=== PATIENT | male | born 1955 | race Two or more races ===

== ENCOUNTER 2016-12-19 08:27 | Inpatient (IN) | payer OTHER ==
[2016-12-19 09:29] VITALS: BMI 23.5
--- NOTE | 2016-12-19 10:30 | HP ---
COWS - Scale Resting Pulse: 1= [place] 81-100 Sweatin= Chills/Flushing Restless Observation: 3= Extraneous Movement Pupil Size: 1= Pupils >than Normal Bone or Joint Aches: 2= Severe Diffuse Aches Runny Nose/ Eye Tearin= Runny Nose/Eyes GI Upset > 30mins: 3= Vomiting/Diarrhea Tremor Observation: 2= Slight Tremor Visible Yawning Observation: 2= >3x During Session Anxiety or Irritability: 2=Irritable/Anxious Goose Flesh Skin: 0=Smooth Skin COWS Score: 19 Admission ROS [facility] - HPI Chief Complaint: I NEED HELP TO STOP USING HEROIN AND COCAINE Allergies/Adverse Reactions: Allergies Allergy/AdvReac Type Severity Reaction Status Date / Time No Known Allergies Allergy Verified 12/19/16 10:22 - Ebola screening Have you traveled outside of the country in the last 21 days: No (N) Have you had contact with anyone from an Ebola affected area: No Have you been sick,other than usual withdrawal symptoms: No Do you have a fever: No Patient History - Smoking Cessation Smoking history: Unknown if ever smoked Admission Physical Exam [facility] - Vital Signs Vital Signs: Vital Signs - 24 hr 12/19/16 09:19 Temperature 97.5 F L Pulse Rate 90 Respiratory 18 Rate Blood Pressure 112/70 Screened but not Admitted - Documentation of Visit Screened but not Admitted: Yes Level of Care Recommended at this Time: ER Evaluation/Care Additional Information/Explanation: THIS 61 YEARS OLD MALE WITH HEROIN AND COCAINE DEPENDENCE,. SWELLING WITH ERYTEMA RIGHT ELBOW WITH TENDERNESS. TENDERNESS ON PALPATION,COPD,HIV SINCE 1989,. BIPOLAR DISORDER,. R/O ABSCESS OF RIGHT ELBOW. TO [facility] ER FOR EVALUATION AND TREATMENT,SPOKE WITH. DR Zoran PIERSON ,PATIENT TO BE TRANSPORTED BY AMBULANCE [facility] Breath Alcohol Content Breath Alcohol Content: 0 Urine Drug Screen - Results Drug Screen Negative: Yes Urine Drug Screen Results: THC-Marijuana, MARIFER-Cocaine, OPI-Opiates
--- NOTE | 2016-12-19 17:56 | HP ---
COWS - Scale Resting Pulse: 1= [place] 81-100 Sweatin= Chills/Flushing Restless Observation: 3= Extraneous Movement Pupil Size: 1= Pupils >than Normal Bone or Joint Aches: 2= Severe Diffuse Aches Runny Nose/ Eye Tearin= Runny Nose/Eyes GI Upset > 30mins: 3= Vomiting/Diarrhea Tremor Observation: 2= Slight Tremor Visible Yawning Observation: 2= >3x During Session Anxiety or Irritability: 2=Irritable/Anxious Goose Flesh Skin: 0=Smooth Skin COWS Score: 19 Admission ROS [facility] Chief Complaint: WITHDRAWAL SX FROM HEROIN Allergies/Adverse Reactions: Allergies Allergy/AdvReac Type Severity Reaction Status Date / Time No Known Allergies Allergy Verified 12/19/16 22:39 History of Present Illness: 61 Y/O H/M WITH A HX OF HEROIN, CRACK AND MARIJUANA DEPENDENCE SEEKING DETOX TX. PT WAS SENT TO [facility] ER THIS MORNING FOR SWOLLEN RIGHT ARM FOR EVALUATION AND TREATMENT. PT WAS EVALUATED AND DISCHARGED WITH A ANTIBIOTICS. DX: ELBOW BURSITIS DX:CELLULITIS MEDICATION:CLINDAMYCIN(CLEOCIN) 450 MG PO Q8H X 7 DAYS Exam Limitations: No Limitations - Ebola screening Have you traveled outside of the country in the last 21 days: No (N) Have you had contact with anyone from an Ebola affected area: No Have you been sick,other than usual withdrawal symptoms: No Do you have a fever: No - Review of Systems Constitutional: Chills, Night Sweats, Changes in sleep EENT: reports: Nose Congestion, Dental Problems (MISSING TEETH) Respiratory: reports: Shortness of Breath (HX ASTHMA), Wheezing Cardiac: reports: No Symptoms Reported GI: reports: Constipated, Diarrhea, Nausea, Vomiting, Abdominal cramping : reports: No Symptoms Reported Musculoskeletal: reports: Back Pain, Joint Pain, Muscle Pain Integumentary: reports: Bruising (BOTH ARMS. RIGHT ARM REDNESS AND SWELLING.), Dryness Neuro: reports: Headache, Tremors, Unsteady Gait Endocrine: reports: No Symptoms Reported Hematology: reports: No Symptoms Reported Psychiatric: reports: Orientated x3, Anxious Other Systems: Reviewed and Negative Patient History - Patient Medical History Hx Anemia: No Hx Asthma: No Hx Chronic Obstructive Pulmonary Disease (COPD): Yes (Pt is on MDI) Hx Cardiac Disorders: No Hx Hypertension: Yes (HCTZ 25 MG PO DAILY) Hx Hypercholesterolemia: No HX Cerebrovascular Accident: No Hx Seizures: No Hx Diabetes: No Hx Gastrointestinal Disorders: No Hx Genitourinary Disorders: No Hx Sexually Transmitted Disorders: No Hx Renal Disease (ESRD): No Hx Thyroid Disease: No Hx Human Immunodeficiency Virus (HIV): Yes (SINCE 1989;ON TRUVADA,REYATAZ, NORVIR.) Hx Hepatitis C: Yes (TREATED) Hx Depression: Yes (AND ANXIETY) Hx Suicide Attempt: No (DENIES) Hx Bipolar Disorder: Yes (ON MED) Hx Schizophrenia: No - Patient Surgical History Past Surgical History: Yes Hx Orthopedic Surgery: Yes (sx to R wrist knee and ankle 01/21) - PPD History Previous Implant?: Yes Documented Results: Negative w/o proof Implanted On Prior [facility] Admission?: No PPD to be Administered?: Yes - Reproductive History Patient is a Female of Child Bearing Age (11 -55 yrs old): No (MALE) - Smoking Cessation Smoking history: Current every day smoker Have you smoked in the past 12 months: No Aproximately how many cigarettes per day: 5 Hx Chewing Tobacco Use: No Initiated information on smoking cessation: Yes 'Breaking Loose' booklet given: 12/12/16 - Substance & Tx. History Hx Alcohol Use: No (DENIES) Hx Substance Use: Yes (HEROIN/CRACK) Substance Use Type: Cocaine, Heroin Hx Substance Use Treatment: Yes (LAST TX AT [facility]) - Substances Abused Heroin Route: Injection Frequency: Daily Amount used: 8-9 BAGS Age of first use: 16 Date of Last Use: 12/19/16 Crack Route: Smoking Frequency: Daily Amount used: 5-6 BAGS Age of first use: 56 Date of Last Use: 12/19/16 Family Disease History - Family Disease History Family Disease History: Diabetes: Mother (HTN-), Other: Father ( ALCOHOLISM/CIRRHOSIS-), Mother Admission Physical Exam S - Vital Signs Vital Signs: Vital Signs - 24 hr 12/19/16 09:19 Temperature 97.5 F L Pulse Rate 90 Respiratory 18 Rate Blood Pressure 112/70 - Physical General Appearance: Yes: Moderate Distress, Irritable, Anxious HEENTM: Yes: EOMI, Normocephalic, RU, Pharynx Normal, Nasal Congestion, Rhinorrhea Respiratory: Yes: Chest Non-Tender, Lungs Clear, Normal Breath Sounds, No Respiratory Distress Neck: Yes: No masses,lesions,Nodules, Supple, Trachea in good position Breast: Yes: Breast Exam Deferred Cardiology: Yes: Regular Rhythm, Regular Rate, S1, S2 Abdominal: Yes: Normal Bowel Sounds, Non Tender, Flat Genitourinary: Yes: Other (N/C) Back: Yes: Within Normal Limits Musculoskeletal: Yes: full range of Motion, Gait Steady Extremities: Yes: Normal Range of Motion, Non-Tender, Swelling (RIGHT ELBOW REDNESS/WARMTH/SWELLING.) Neurological: Yes: sales contract administrator II-XII NML intact, Fully Oriented, Alert, Motor Strength 5/5 Integumentary: Yes: Dry, Warm, Track Cordero (LEFT ELBOW--NO REDNESS OR SWELLING) Lymphatic: Yes: Within Normal Limits - Diagnostic (1) Opioid dependence with withdrawal Current Visit: Yes Status: Acute (2) Cocaine dependence, uncomplicated Current Visit: Yes Status: Acute (3) Cannabis dependence, uncomplicated Current Visit: Yes Status: Acute (4) HIV (human immunodeficiency virus infection) Current Visit: Yes Status: Chronic (5) COPD (chronic obstructive pulmonary disease) Current Visit: Yes Status: Chronic Qualifiers: COPD type: unspecified COPD Qualified Code(s): J44.9 - Chronic obstructive pulmonary disease, unspecified (6) Hypertension Current Visit: Yes Status: Chronic Qualifiers: Hypertension type: essential hypertension Qualified Code(s): I10 - Essential (primary) hypertension (7) Cellulitis Current Visit: Yes Status: Acute Qualifiers: Site of cellulitis: extremity Site of cellulitis of extremity: upper extremity Laterality: right Qualified Code(s): L03.113 - Cellulitis of right upper limb Cleared for Admission [facility] - Detox or Rehab [facility] Level of Care: Medically Managed Detox Regimen/Protocol: Methadone [facility] Breath Alcohol Content Breath Alcohol Content: 0 Urine Drug Screen - Results Drug Screen Negative: Yes Urine Drug Screen Results: THC-Marijuana, MARIFER-Cocaine, OPI-Opiates
[2016-12-19] MEDS ORDERED: METHADONE HCL 10 MG TABLET (FOR DETOX USE ONLY) PO ONE ×2 (18:10→23:00)
[2016-12-19] MEDS ORDERED: IBUPROFEN 400 MG TABLET (FP) PO PRN (18:10)
[2016-12-19] MEDS ORDERED: LOPERAMIDE HCL 2 MG CAPSULE PO PRN (18:10)
[2016-12-19] MEDS ORDERED: guaiFENesin/D-METHORPHAN HB 10 ML UNIT-DOSE CUPS PO PRN (18:10)
[2016-12-19] MEDS ORDERED: MAGNESIUM HYDROX 2400MG/30ML ORAL SUSPENSION 30 ML CUP PO PRN (18:10)
[2016-12-19] MEDS ORDERED: NICOTINE POLACRILEX 2 MG GUM BC PRN (18:10)
[2016-12-19] MEDS ORDERED: MAGNESIUM CITRATE 300 ML BOTTLE PO PRN (18:10)
[2016-12-19] MEDS ORDERED: P-EPHED 60MG/TRIPROLIDI 2.5MG TABLET PO PRN (18:10)
[2016-12-19] MEDS ORDERED: MENTHOL/PHENOL 1 EACH UD MM PRN (18:10)
[2016-12-19] MEDS ORDERED: ACETAMINOPHEN 325 MG TABLET (FP) PO PRN (18:10)
[2016-12-19] MEDS: CLINDAMYCIN HCL 150 MG CAPSULE (FP) PO SCH ×2 (19:09→21:47)
[2016-12-19] MEDS: NICOTINE 14 MG/24 HOURS TOPICAL PATCH TD SCH (19:09)
[2016-12-19] MEDS: diazePAM 5 MG TABLET PO PRN (19:10)
[2016-12-19] MEDS: ALBUTEROL SO4 18 GM HFA INHALER IH PRN (19:19)
[2016-12-19] MEDS: MAG HYDROX/AL HYDROX/SIMETH 30 ML UNIT-DOSE CUP PO PRN (20:27)
[2016-12-19] MEDS: ALBUTEROL SO4 2.5/IPRATROPIUM 0.5 INH SOL 3 ML VIAL.NEB. NEB PRN (20:28)
[2016-12-19] MEDS: EMTRICITABINE 200MG/TENOFOVIR 300MG PO SCH (21:47)
[2016-12-19] MEDS: RITONAVIR 100 MG TABLET PO SCH (21:48)
[2016-12-19] MEDS: THIAMINE HCL 100 MG TABLET (FP) PO SCH (21:48)
[2016-12-19] MEDS: ATAZANAVIR SO4 300 MG CAPSULE PO SCH (21:48)
[2016-12-19] MEDS: BUDESONIDE/FORMETEROL FUMARATE 80/4.5 mcg INHALER IH SCH (21:48)
--- NOTE | 2016-12-19 22:07 | PN ---
[facility] Progress Note Note: Patient was seen and examined at bedside with complaint of abdominal pain. He reports his pain as intermittent unbearable, burning and aching. On examination , guarding behavior and bulge above the umbilicus noted. V/S B/P 140/76, HR 57, T 99.0F, R21. Patient states that he was at [facility] earlier today and they did not address his concerns about his abdominal pain and gave him antibiotics for his elbow infection. Patient transferred to [facility] ER for further evaluation. Endorsed to Dr. Craig.
[2016-12-19 23:37] LABS: URINE APPEARANCE CLEAR; URINE BILIRUBIN NEGATIVE (NEGATIVE); URINE BLOOD 2+ (NEGATIVE); URINE COLOR YELLOW; URINE GLUCOSE (UA) 2+ (NEGATIVE); URINE KETONE NEGATIVE (NEGATIVE); URINE NITRITE NEGATIVE (NEGATIVE); URINE UROBILINOGEN NEGATIVE mg/dL (0.2-1.0)
[2016-12-19 23:41] LABS: URINE PROTEIN 1+ (NEGATIVE)
[2016-12-19 23:43] LABS: URINE MUCUS RARE; URINE RBC 1; URINE WBC 1
[2016-12-20] MEDS: diazePAM 5 MG TABLET PO PRN (03:02)
[2016-12-20] MEDS: CLINDAMYCIN HCL 150 MG CAPSULE (FP) PO SCH ×3 (05:50→22:10)
[2016-12-20 09:54] LABS: MCH 26.2 pg (25.7-33.7); MCHC 32.8 g/dl (32.0-35.9); MEAN CELL VOLUME 79.7 fl (80-96); MEAN PLT VOLUME 8.7 fl (7.5-11.1); PLATELET COUNT 273 K/MM3 (134-434); RDW 16.5 % (11.9-15.9); WHITE BLOOD COUNT 6.9 K/mm3 (4.0-10.0)
[2016-12-20] MEDS: ALBUTEROL SO4 2.5/IPRATROPIUM 0.5 INH SOL 3 ML VIAL.NEB. NEB PRN (10:00)
[2016-12-20] MEDS ORDERED: METHADONE HCL 10 MG TABLET (FOR DETOX USE ONLY) PO ONE (10:00)
[2016-12-20] MEDS: PRENATAL VITAMINS W/ FOLIC ACID TABLET (FP) PO SCH (10:14)
[2016-12-20] MEDS: BUDESONIDE/FORMETEROL FUMARATE 80/4.5 mcg INHALER IH SCH ×2 (10:15→22:12)
[2016-12-20] MEDS: NAPROXEN 375 MG TABLET (FP) PO SCH ×2 (10:17→22:11)
[2016-12-20 10:39] LABS: ALBUMIN 2.7 g/dl (3.4-5.0); ALK PHOS 91 U/L (45-117); ANION GAP 10 (8-16); BILIRUBIN,TOTAL 0.9 mg/dL (0.2-1.0); CALCIUM 8.3 mg/dL (8.5-10.1); CO2 25 mmol/L (21-32); CREATININE 0.9 mg/dL (0.7-1.3); GLUCOSE,RANDOM 95 mg/dL (74-106); SGOT/AST 51 U/L (15-37); SGPT/ALT 61 U/L (12-78)
[2016-12-20] MEDS: NICOTINE 14 MG/24 HOURS TOPICAL PATCH TD SCH ×2 (11:01→13:27)
[2016-12-20 11:32] LABS: SICKLE CELL SCREEN NEGATIVE (NEGATIVE)
[2016-12-20 11:45] LABS: URINE LEUK ESTERASE Negative (NEGATIVE)
[2016-12-20] MEDS: ALBUTEROL SO4 18 GM HFA INHALER IH PRN (12:00)
--- NOTE | 2016-12-20 12:09 | PN ---
BHS COWS - Scale Resting Pulse: 1= [place] 81-100 Sweatin= Chills/Flushing Restless Observation: 1= Difficult to Sit Still Pupil Size: 0= Normal to Room Light Bone or Joint Aches: 2= Severe Diffuse Aches Runny Nose/ Eye Tearin= None GI Upset > 30mins: 1= Stomach Cramp Tremor Observation of Outstretched Hands: 2= Slight Tremor Visible Yawning Observation: 0= None Anxiety or Irritability: 2=Irritable/Anxious Goose Flesh Skin: 3=Piloerection COWS Score: 13 BHS Progress Note (SOAP) Subjective: Anxious, Stomach Cramping, Body Aches. Objective: PT. A & O X 3, OBSERVED AMBULATING ON UNIT. NO ACUTE DISTRESS. PT. RETURNED FROM [facility] ER LAST NIGHT FOR C/O ABDOMINAL PAIN (ER DX: VENTRAL HERNIA). SWELLING NOTED IN RIGHT ELBOW AND HAND. NO BLEEDING OR UNUSUAL DISCHARGE NOTED. PT. REPORTS THAT AREA IS PAINFUL. PT. CURRENTLY PRESCRIBED PO CLINDAMYCIN. 12/20/16 12:05 Vital Signs Temperature 98.1 F 12/20/16 09:19 Pulse Rate 94 H 12/20/16 09:19 Respiratory Rate 18 12/20/16 09:19 Blood Pressure 127/97 12/20/16 09:19 O2 Sat by Pulse Oximetry (%) Laboratory Tests 12/19/16 12/20/16 12/20/16 23:20 07:00 07:00 WBC 6.9 RBC 5.07 Hgb 13.3 Hct 40.4 MCV 79.7 L MCH 26.2 MCHC 32.8 RDW 16.5 H Plt Count 273 MPV 8.7 Sickle Cell Screen Negative Sodium 140 Potassium 3.9 Chloride 105 Carbon Dioxide 25 Anion Gap 10 BUN 22 H D Creatinine 0.9 Creat Clearance w eGFR > 60 Random Glucose 95 Calcium 8.3 L Total Bilirubin 0.9 D AST 51 H ALT 61 Alkaline Phosphatase 91 Total Protein 7.0 Albumin 2.7 L Urine Color Yellow Urine Appearance Clear Urine pH 6.0 Ur Specific [place] 1.027 Urine Protein 1+ H Urine Glucose (UA) 2+ H Urine Ketones Negative Urine Blood 2+ H Urine Nitrite Negative Urine Bilirubin Negative Urine Urobilinogen Negative Ur Leukocyte Esterase Negative Urine WBC (Auto) 1 Urine RBC (Auto) 1 Ur Epithelial Cells Rare Urine Mucus Rare RPR Titer 11/14/17 07:00 WBC RBC Hgb Hct MCV MCH MCHC RDW Plt Count MPV Sickle Cell Screen Sodium Potassium Chloride Carbon Dioxide Anion Gap BUN Creatinine Creat Clearance w eGFR Random Glucose Calcium Total Bilirubin AST ALT Alkaline Phosphatase Total Protein Albumin Urine Color Urine Appearance Urine pH Ur Specific [place] Urine Protein Urine Glucose (UA) Urine Ketones Urine Blood Urine Nitrite Urine Bilirubin Urine Urobilinogen Ur Leukocyte Esterase Urine WBC (Auto) Urine RBC (Auto) Ur Epithelial Cells Urine Mucus RPR Titer Nonreactive LABS NOTED. 12/20/16 12:09 Assessment: 12/20/16 12:07 WITHDRAWAL SYMPTOMS. Plan: CONTINUE DETOX. REPEAT UA FOR ADMISSION ABNORMALITIES. NAPROXEN, 375 MG PO BID FOR PAIN AND SWELLING OF RIGHT ELBOW AND HAND. INCREASE DAILY PO FLUID INTAKE.
--- NOTE | 2016-12-20 15:50 | CONSULT ---
[facility] Psychiatric Consult - Data Date of interview: 12/20/16 Admission source: [facility] Identifying data: First admission to [facility] for this 61 y/o male seeking detox treatment on for heroin,cocaine and marijuana dependence.Patient is single,a father of three,domiciled,unemployed and supported on [facility] benefits. Substance Abuse History: Active use of marihuana,heroin and crack as per self- report. Smoking history: Current every day smoker. Have you smoked in the past 12 months: No. Aproximately how many cigarettes per day: 5. Hx Chewing Tobacco Use: No. Initiated information on smoking cessation: Yes. 'Breaking Loose' booklet given: 12/12/16. - Substance & Tx. History. Hx Alcohol Use: No (DENIES). Hx Substance Use: Yes (HEROIN/CRACK). Substance Use Type: Cocaine, Heroin. Hx Substance Use Treatment: Yes (LAST TX AT [facility]). - Substances Abused. Heroin. Route: Injection. Frequency: Daily. Amount used: 8-9 BAGS. Age of first use: 16. Date of Last Use: 12/19/16. Crack. Route: Smoking. Frequency: Daily. Amount used: 5-6 BAGS. Age of first use: 56. Date of Last Use: 12/19/16 Medical History: Remarkable for HIV infection since 1989 (on ART medications), COPD,hypertension,hepatitis C and current treatment for cellulitis/elbow bursitis (on antibiotics).Noted remote history of orthosurgery for ijury to right wrist,ankle and right knee. Psychiatric History: Patient denies.Prescribed seroquel 50 mg/hs by his primary care doctor (insomnia).No history of suicide attempts. Physical/Sexual Abuse/Trauma History: Patient denies. Additional Comment: Urine Drug Screen Results: THC-Marijuana, MARIFER-Cocaine, OPI- Opiates.Noted. Mental Status Exam - Mental Status Exam Alert and Oriented to: Time, Place, Person Cognitive Function: Good Patient Appearance: Unkempt, Disheveled Mood: Withdrawn, Hopeful Affect: Mood Congruent Patient Behavior: Fatigued, Appropriate, Cooperative Speech Pattern: Clear Voice Loudness: Normal Thought Process: Intact, Goal Oriented Thought Disorder: Not Present Hallucinations: Denies Suicidal Ideation: Denies Homicidal Ideation: Denies Insight/Judgement: Poor Sleep: Poorly, Difficulty falling asleep Appetite: Good Muscle strength/Tone: Normal Gait/Station: Normal Psychiatric Findings - Problem List ([place] 1, 2,3) (1) Opioid dependence with withdrawal Current Visit: Yes Status: Acute (2) Cannabis dependence, uncomplicated Current Visit: Yes Status: Acute (3) Cocaine dependence, uncomplicated Current Visit: Yes Status: Acute (4) Nicotine dependence Current Visit: Yes Status: Acute (5) Insomnia Current Visit: Yes Status: Acute - Initial Treatment Plan Initial Treatment Plan: Psychoeducation.Detoxification.Sleep hygiene.Seroquel 50 mg po hs.Side effects/benefits are discussed with the patient.Agrees with careplan.Observation.
[2016-12-20] MEDS: ATAZANAVIR SO4 300 MG CAPSULE PO SCH (22:09)
[2016-12-20] MEDS: THIAMINE HCL 100 MG TABLET (FP) PO SCH (22:09)
[2016-12-20] MEDS: QUEtiapine FUMARATE 50 MG TABLET PO SCH (22:10)
[2016-12-20] MEDS: EMTRICITABINE 200MG/TENOFOVIR 300MG PO SCH (22:12)
[2016-12-20] MEDS: RITONAVIR 100 MG TABLET PO SCH (22:12)
[2016-12-21] MEDS: ALBUTEROL SO4 2.5/IPRATROPIUM 0.5 INH SOL 3 ML VIAL.NEB. NEB PRN ×2 (00:47→11:12)
[2016-12-21] MEDS: diazePAM 5 MG TABLET PO PRN ×3 (01:27→22:19)
[2016-12-21] MEDS: CLINDAMYCIN HCL 150 MG CAPSULE (FP) PO SCH ×3 (05:32→22:18)
[2016-12-21] MEDS: MAG HYDROX/AL HYDROX/SIMETH 30 ML UNIT-DOSE CUP PO PRN (05:44)
[2016-12-21] MEDS: ALBUTEROL SO4 18 GM HFA INHALER IH PRN (09:26)
[2016-12-21] MEDS ORDERED: METHADONE HCL 5 MG TABLET (FOR DETOX USE ONLY) PO ONE (10:00)
[2016-12-21] MEDS: BUDESONIDE/FORMETEROL FUMARATE 80/4.5 mcg INHALER IH SCH ×2 (10:29→23:02)
[2016-12-21] MEDS: PRENATAL VITAMINS W/ FOLIC ACID TABLET (FP) PO SCH (10:29)
[2016-12-21] MEDS: NICOTINE 14 MG/24 HOURS TOPICAL PATCH TD SCH (10:30)
[2016-12-21] MEDS: NAPROXEN 375 MG TABLET (FP) PO SCH ×2 (10:30→22:21)
--- NOTE | 2016-12-21 11:26 | PN ---
BHS COWS - Scale Resting Pulse: 1= [place] 81-100 Sweatin= Chills/Flushing Restless Observation: 1= Difficult to Sit Still Pupil Size: 0= Normal to Room Light Bone or Joint Aches: 0= None Runny Nose/ Eye Tearin= None GI Upset > 30mins: 0= None Tremor Observation of Outstretched Hands: 2= Slight Tremor Visible Yawning Observation: 1= 1-2x During Session Anxiety or Irritability: 2=Irritable/Anxious Goose Flesh Skin: 3=Piloerection COWS Score: 11 BHS Progress Note (SOAP) Subjective: Anxious, Sweating, Hot / Cold Sensations. Objective: PT. A & O X 3, OBSERVED AMBULATING ON UNIT. NO ACUTE DISTRESS. PT. HAS HISTORY OF COPD AND REPORTING SOB THAT HAS NOT RESPONDED WELL TO PRN DUONEB TREATMENTS AND VENTOLIN INHLAER. 12/21/16 11:32 Vital Signs Temperature 97.6 F 12/21/16 09:28 Pulse Rate 81 12/21/16 09:28 Respiratory Rate 18 12/21/16 09:28 Blood Pressure 137/76 12/21/16 09:28 O2 Sat by Pulse Oximetry (%) Laboratory Tests 12/19/16 12/20/16 12/20/16 23:20 07:00 07:00 WBC 6.9 RBC 5.07 Hgb 13.3 Hct 40.4 MCV 79.7 L MCH 26.2 MCHC 32.8 RDW 16.5 H Plt Count 273 MPV 8.7 Sickle Cell Screen Negative Sodium 140 Potassium 3.9 Chloride 105 Carbon Dioxide 25 Anion Gap 10 BUN 22 H D Creatinine 0.9 Creat Clearance w eGFR > 60 Random Glucose 95 Calcium 8.3 L Total Bilirubin 0.9 D AST 51 H ALT 61 Alkaline Phosphatase 91 Total Protein 7.0 Albumin 2.7 L Urine Color Yellow Urine Appearance Clear Urine pH 6.0 Ur Specific [place] 1.027 Urine Protein 1+ H Urine Glucose (UA) 2+ H Urine Ketones Negative Urine Blood 2+ H Urine Nitrite Negative Urine Bilirubin Negative Urine Urobilinogen Negative Ur Leukocyte Esterase Negative Urine WBC (Auto) 1 Urine RBC (Auto) 1 Ur Epithelial Cells Rare Urine Mucus Rare RPR Titer 12/20/16 07:00 WBC RBC Hgb Hct MCV MCH MCHC RDW Plt Count MPV Sickle Cell Screen Sodium Potassium Chloride Carbon Dioxide Anion Gap BUN Creatinine Creat Clearance w eGFR Random Glucose Calcium Total Bilirubin AST ALT Alkaline Phosphatase Total Protein Albumin Urine Color Urine Appearance Urine pH Ur Specific [place] Urine Protein Urine Glucose (UA) Urine Ketones Urine Blood Urine Nitrite Urine Bilirubin Urine Urobilinogen Ur Leukocyte Esterase Urine WBC (Auto) Urine RBC (Auto) Ur Epithelial Cells Urine Mucus RPR Titer Nonreactive LABS NOTED. REPEAT UA RESULTS PENDING. 12/21/16 11:38 Assessment: 12/21/16 11:32 WITHDRAWAL SYMPTOMS. COPD EXACERBATION. 12/21/16 11:42 Plan: CONTINUE DETOX. PREDNISONE, 20 MG PO DAILY FOR COPD EXACERBATION. ACCORDING TO PHARMACIST AT PT. 'S PHARMACY (OLGA TRUJILLO II, [facility] [place] PT. WAS PRESCRIBED PREDNISONE, 20 MG PO DAILY JUST PRIOR TO ADMISSION TO DETOX. INCREASE DAILY PO FLUID INTAKE.
[2016-12-21] MEDS: predniSONE 20 MG TABLET (UD) PO SCH (11:46)
--- NOTE | 2016-12-21 12:14 | EKG ---
Test Reason : Blood Pressure : / mmHG Vent. Rate : 086 BPM Atrial Rate : 086 BPM P-R Int : 142 ms QRS Dur : 082 ms QT Int : 348 ms P-R-T Axes : 074 013 071 degrees QTc Int : 416 ms NORMAL SINUS RHYTHM MINIMAL VOLTAGE CRITERIA FOR LVH, MAY BE NORMAL VARIANT BORDERLINE ECG NO PREVIOUS ECGS AVAILABLE Confirmed by ADRI SEGUNDO MD ([id number]) on 12/21/2016 12:14:23 PM Referred By: Confirmed By:ADRI SEGUNDO MD
[2016-12-21] MEDS: QUEtiapine FUMARATE 50 MG TABLET PO SCH (22:18)
[2016-12-21] MEDS: THIAMINE HCL 100 MG TABLET (FP) PO SCH (22:18)
[2016-12-21] MEDS: ATAZANAVIR SO4 300 MG CAPSULE PO SCH (22:19)
[2016-12-21] MEDS: RITONAVIR 100 MG TABLET PO SCH (22:20)
[2016-12-21] MEDS: EMTRICITABINE 200MG/TENOFOVIR 300MG PO SCH (22:21)
[2016-12-22] MEDS: ALBUTEROL SO4 2.5/IPRATROPIUM 0.5 INH SOL 3 ML VIAL.NEB. NEB PRN ×2 (00:51→11:25)
[2016-12-22] MEDS: MAG HYDROX/AL HYDROX/SIMETH 30 ML UNIT-DOSE CUP PO PRN ×2 (02:07→19:48)
[2016-12-22] MEDS: diazePAM 5 MG TABLET PO PRN (05:43)
[2016-12-22] MEDS: CLINDAMYCIN HCL 150 MG CAPSULE (FP) PO SCH ×3 (05:43→22:24)
[2016-12-22] MEDS: ALBUTEROL SO4 18 GM HFA INHALER IH PRN (05:44)
[2016-12-22] MEDS ORDERED: METHADONE HCL 5 MG TABLET (FOR DETOX USE ONLY) PO ONE (10:00)
[2016-12-22 10:21] LABS: URINE APPEARANCE SLCLOUDY; URINE BILIRUBIN NEGATIVE (NEGATIVE); URINE BLOOD NEGATIVE (NEGATIVE); URINE COLOR YELLOW; URINE GLUCOSE (UA) NEGATIVE (NEGATIVE); URINE KETONE NEGATIVE (NEGATIVE); URINE NITRITE NEGATIVE (NEGATIVE); URINE PROTEIN NEGATIVE (NEGATIVE); URINE UROBILINOGEN NEGATIVE mg/dL (0.2-1.0)
[2016-12-22] MEDS: BUDESONIDE/FORMETEROL FUMARATE 80/4.5 mcg INHALER IH SCH ×2 (10:29→22:25)
[2016-12-22] MEDS: NAPROXEN 375 MG TABLET (FP) PO SCH ×2 (10:30→22:24)
[2016-12-22] MEDS: PRENATAL VITAMINS W/ FOLIC ACID TABLET (FP) PO SCH (10:30)
[2016-12-22] MEDS: predniSONE 20 MG TABLET (UD) PO SCH (10:30)
[2016-12-22] MEDS: NICOTINE 14 MG/24 HOURS TOPICAL PATCH TD SCH (10:31)
[2016-12-22 16:52] LABS: URINE LEUK ESTERASE Negative (NEGATIVE)
--- NOTE | 2016-12-22 19:22 | PN ---
BHS Progress Note (SOAP) Subjective: Sweating, Stomach Cramping, Tremors, Anxious. Objective: PT. A & O X 3, OBSERVED AMBULATING ON UNIT. NO ACUTE DISTRESS. SWELLING ON RIGHT ELBOW AND HAND NOTED TO BE DIMINISHING. PATIENT REPORTS THAT DISCOMFORT IN THOSE AREAS IS IMPROVING. 12/22/16 19:19 Vital Signs Temperature 97.2 F L 12/22/16 17:13 Pulse Rate 91 H 12/22/16 17:13 Respiratory Rate 18 12/22/16 17:13 Blood Pressure 111/66 12/22/16 17:13 O2 Sat by Pulse Oximetry (%) Laboratory Tests 12/19/16 12/20/16 12/20/16 23:20 07:00 07:00 WBC 6.9 RBC 5.07 Hgb 13.3 Hct 40.4 MCV 79.7 L MCH 26.2 MCHC 32.8 RDW 16.5 H Plt Count 273 MPV 8.7 Sickle Cell Screen Negative Sodium 140 Potassium 3.9 Chloride 105 Carbon Dioxide 25 Anion Gap 10 BUN 22 H D Creatinine 0.9 Creat Clearance w eGFR > 60 Random Glucose 95 Calcium 8.3 L Total Bilirubin 0.9 D AST 51 H ALT 61 Alkaline Phosphatase 91 Total Protein 7.0 Albumin 2.7 L Urine Color Yellow Urine Appearance Clear Urine pH 6.0 Ur Specific [place] 1.027 Urine Protein 1+ H Urine Glucose (UA) 2+ H Urine Ketones Negative Urine Blood 2+ H Urine Nitrite Negative Urine Bilirubin Negative Urine Urobilinogen Negative Ur Leukocyte Esterase Negative Urine WBC (Auto) 1 Urine RBC (Auto) 1 Ur Epithelial Cells Rare Urine Mucus Rare RPR Titer 12/20/16 12/22/16 07:00 08:00 WBC RBC Hgb Hct MCV MCH MCHC RDW Plt Count MPV Sickle Cell Screen Sodium Potassium Chloride Carbon Dioxide Anion Gap BUN Creatinine Creat Clearance w eGFR Random Glucose Calcium Total Bilirubin AST ALT Alkaline Phosphatase Total Protein Albumin Urine Color Yellow Urine Appearance Slcloudy Urine pH 7.0 Ur Specific [place] 1.025 Urine Protein Negative Urine Glucose (UA) Negative Urine Ketones Negative Urine Blood Negative Urine Nitrite Negative Urine Bilirubin Negative Urine Urobilinogen Negative Ur Leukocyte Esterase Negative Urine WBC (Auto) Urine RBC (Auto) Ur Epithelial Cells Urine Mucus RPR Titer Nonreactive LABS NOTED. RESULTS OF REPEAT UA NOTED. 12/22/16 19:22 Assessment: 12/22/16 19:20 WITHDRAWAL SYMPTOMS. Plan: CONTINUED DETOX. INCREASE DAILY PO FLUID INTAKE. PATIENT ADVISED TO FOLLOW-UP AFTER DISCHARGE FROM DETOX WITH CLARIFIER OPERATOR HELPER DR. Tameka FELICIANO OF [facility] FOR MEDICAL ASSESSMENT AND FOR HISTORY OF COPD.
[2016-12-22] MEDS: QUEtiapine FUMARATE 50 MG TABLET PO SCH (22:24)
[2016-12-22] MEDS: RITONAVIR 100 MG TABLET PO SCH (22:24)
[2016-12-22] MEDS: ATAZANAVIR SO4 300 MG CAPSULE PO SCH (22:24)
[2016-12-22] MEDS: THIAMINE HCL 100 MG TABLET (FP) PO SCH (22:25)
[2016-12-22] MEDS: EMTRICITABINE 200MG/TENOFOVIR 300MG PO SCH (22:25)
[2016-12-23] MEDS: CLINDAMYCIN HCL 150 MG CAPSULE (FP) PO SCH ×3 (05:50→22:23)
[2016-12-23] MEDS: ALBUTEROL SO4 18 GM HFA INHALER IH PRN (08:18)
[2016-12-23] MEDS: ALBUTEROL SO4 2.5/IPRATROPIUM 0.5 INH SOL 3 ML VIAL.NEB. NEB PRN ×2 (09:29→19:46)
[2016-12-23] MEDS ORDERED: METHADONE HCL 10 MG TABLET (FOR DETOX USE ONLY) PO ONE (10:00)
[2016-12-23] MEDS: BUDESONIDE/FORMETEROL FUMARATE 80/4.5 mcg INHALER IH SCH ×2 (10:03→22:25)
[2016-12-23] MEDS: predniSONE 20 MG TABLET (UD) PO SCH (10:04)
[2016-12-23] MEDS: NAPROXEN 375 MG TABLET (FP) PO SCH ×2 (10:04→22:24)
[2016-12-23] MEDS: NICOTINE 14 MG/24 HOURS TOPICAL PATCH TD SCH (10:04)
[2016-12-23] MEDS: PRENATAL VITAMINS W/ FOLIC ACID TABLET (FP) PO SCH (10:04)
--- NOTE | 2016-12-23 16:08 | PN ---
BHS Progress Note (SOAP) Subjective: Anxious, Body Aches. Objective: PT. A & O X 3, OBSERVED AMBULATING ON UNIT. NO ACUTE DISTRESS. 12/23/16 16:07 Vital Signs Temperature 96.2 F L 12/23/16 13:49 Pulse Rate 69 12/23/16 13:49 Respiratory Rate 18 12/23/16 13:49 Blood Pressure 134/80 12/23/16 13:49 O2 Sat by Pulse Oximetry (%) Laboratory Tests 12/19/16 12/20/16 12/20/16 23:20 07:00 07:00 WBC 6.9 RBC 5.07 Hgb 13.3 Hct 40.4 MCV 79.7 L MCH 26.2 MCHC 32.8 RDW 16.5 H Plt Count 273 MPV 8.7 Sickle Cell Screen Negative Sodium 140 Potassium 3.9 Chloride 105 Carbon Dioxide 25 Anion Gap 10 BUN 22 H D Creatinine 0.9 Creat Clearance w eGFR > 60 Random Glucose 95 Calcium 8.3 L Total Bilirubin 0.9 D AST 51 H ALT 61 Alkaline Phosphatase 91 Total Protein 7.0 Albumin 2.7 L Urine Color Yellow Urine Appearance Clear Urine pH 6.0 Ur Specific [place] 1.027 Urine Protein 1+ H Urine Glucose (UA) 2+ H Urine Ketones Negative Urine Blood 2+ H Urine Nitrite Negative Urine Bilirubin Negative Urine Urobilinogen Negative Ur Leukocyte Esterase Negative Urine WBC (Auto) 1 Urine RBC (Auto) 1 Ur Epithelial Cells Rare Urine Mucus Rare RPR Titer 12/20/16 12/22/16 07:00 08:00 WBC RBC Hgb Hct MCV MCH MCHC RDW Plt Count MPV Sickle Cell Screen Sodium Potassium Chloride Carbon Dioxide Anion Gap BUN Creatinine Creat Clearance w eGFR Random Glucose Calcium Total Bilirubin AST ALT Alkaline Phosphatase Total Protein Albumin Urine Color Yellow Urine Appearance Slcloudy Urine pH 7.0 Ur Specific [place] 1.025 Urine Protein Negative Urine Glucose (UA) Negative Urine Ketones Negative Urine Blood Negative Urine Nitrite Negative Urine Bilirubin Negative Urine Urobilinogen Negative Ur Leukocyte Esterase Negative Urine WBC (Auto) Urine RBC (Auto) Ur Epithelial Cells Urine Mucus RPR Titer Nonreactive LABS NOTED. Assessment: 12/23/16 16:07 WITHDRAWAL SYMPTOMS. Plan: CONTINUE DETOX.
[2016-12-23] MEDS: MAG HYDROX/AL HYDROX/SIMETH 30 ML UNIT-DOSE CUP PO PRN (19:41)
[2016-12-23] MEDS: QUEtiapine FUMARATE 50 MG TABLET PO SCH (22:23)
[2016-12-23] MEDS: THIAMINE HCL 100 MG TABLET (FP) PO SCH (22:23)
[2016-12-23] MEDS: ATAZANAVIR SO4 300 MG CAPSULE PO SCH (22:23)
[2016-12-23] MEDS: RITONAVIR 100 MG TABLET PO SCH (22:24)
[2016-12-23] MEDS: EMTRICITABINE 200MG/TENOFOVIR 300MG PO SCH (22:26)
[2016-12-24] MEDS: CLINDAMYCIN HCL 150 MG CAPSULE (FP) PO SCH (05:39)
[2016-12-24] MEDS ORDERED: METHADONE HCL 5 MG TABLET (FOR DETOX USE ONLY) PO ONE (06:00)
[2016-12-24 09:06] VITALS: BP 132/84; PULSE 97; TEMP 96.4
[2016-12-24] MEDS: PRENATAL VITAMINS W/ FOLIC ACID TABLET (FP) PO SCH (10:25)
[2016-12-24] MEDS: predniSONE 20 MG TABLET (UD) PO SCH (10:25)
[2016-12-24] MEDS: NAPROXEN 375 MG TABLET (FP) PO SCH (10:26)
[2016-12-24] MEDS: NICOTINE 14 MG/24 HOURS TOPICAL PATCH TD SCH (10:27)
[2016-12-24] MEDS: BUDESONIDE/FORMETEROL FUMARATE 80/4.5 mcg INHALER IH SCH (10:28)
--- NOTE | 2016-12-24 16:30 | DS ---
[facility] Detox Discharge Summary Admission Date: 12/19/16 Discharge Date: 12/24/16 - History Present History: Cannabis Dependence, Cocaine Dependence, Opioid Dependence Additional Comments: PATIENT WILL CONTACT [facility] ON 12/26/2016 FOR POSSIBLE ADMISSION AT THAT TIME. PATIENT DECLINED PRESCRIPTION FOR DISCHARGE MEDICATIONS , STATING THAT HE CURRENTLY HAS ADEQUATE SUPPLIES OF HIS MEDICATIONS AT HOME. PATIENT ADVISED TO COMPLETE REMAINDER OF FULL COURSE OF CLINDAMYCIN THAT HE STARTED TAKING FOR CELLULITIS OF RIGHT ARM PRIOR TO ADMISSION TO DETOX (AND CONTINUED WHILE ADMITTED FOR DETOX). PATIENT ALSO ADVISED TO FOLLOW-UP WITH STRATEGIC PARTNERSHIP SPECIALIST DR. FELICIANO OF [facility]) AFTER DISCHARGE FROM DETOX FOR FOLLOW-UP MEDICAL ASSESSMENT FOR CELULITIS, COPD, AND ABDOMINAL HERNIA. PATIENT WAS DISCHARGED FROM DETOX UNIT IN STABLE MEDICAL CONDITION. Pertinent Past History: Hep C, HIV, COPD, HTN, Bipolar Disorder, Cellulitis of Upper Extremity, Abdominal Hernia, Depression, Anxiety, Insomnia. - Physical Exam Results Vital Signs: Vital Signs Temperature 96.4 F L 12/24/16 09:06 Pulse Rate 97 H 12/24/16 09:06 Respiratory Rate 18 12/24/16 09:06 Blood Pressure 132/84 12/24/16 09:06 O2 Sat by Pulse Oximetry (%) Pertinent Admission Physical Exam Findings: WITHDRAWAL SYMPTOMS. Laboratory Tests 12/19/16 12/20/16 12/20/16 23:20 07:00 07:00 WBC 6.9 RBC 5.07 Hgb 13.3 Hct 40.4 MCV 79.7 L MCH 26.2 MCHC 32.8 RDW 16.5 H Plt Count 273 MPV 8.7 Sickle Cell Screen Negative Sodium 140 Potassium 3.9 Chloride 105 Carbon Dioxide 25 Anion Gap 10 BUN 22 H D Creatinine 0.9 Creat Clearance w eGFR > 60 Random Glucose 95 Calcium 8.3 L Total Bilirubin 0.9 D AST 51 H ALT 61 Alkaline Phosphatase 91 Total Protein 7.0 Albumin 2.7 L Urine Color Yellow Urine Appearance Clear Urine pH 6.0 Ur Specific [place] 1.027 Urine Protein 1+ H Urine Glucose (UA) 2+ H Urine Ketones Negative Urine Blood 2+ H Urine Nitrite Negative Urine Bilirubin Negative Urine Urobilinogen Negative Ur Leukocyte Esterase Negative Urine WBC (Auto) 1 Urine RBC (Auto) 1 Ur Epithelial Cells Rare Urine Mucus Rare RPR Titer 12/20/16 12/22/16 07:00 08:00 WBC RBC Hgb Hct MCV MCH MCHC RDW Plt Count MPV Sickle Cell Screen Sodium Potassium Chloride Carbon Dioxide Anion Gap BUN Creatinine Creat Clearance w eGFR Random Glucose Calcium Total Bilirubin AST ALT Alkaline Phosphatase Total Protein Albumin Urine Color Yellow Urine Appearance Slcloudy Urine pH 7.0 Ur Specific [place] 1.025 Urine Protein Negative Urine Glucose (UA) Negative Urine Ketones Negative Urine Blood Negative Urine Nitrite Negative Urine Bilirubin Negative Urine Urobilinogen Negative Ur Leukocyte Esterase Negative Urine WBC (Auto) Urine RBC (Auto) Ur Epithelial Cells Urine Mucus RPR Titer Nonreactive LABS NOTED. - Treatment Hospital Course: Detox Protocol Followed, Detoxed Safely, Responded well, Discharged Condition Good, Rehab Referral Accepted Patient has Accepted a Rehab Referral to: [facility]. - Medication Discharge Medications: Ambulatory Orders Albuterol Sulfate Inhaler - [Ventolin Hfa Inhaler -] 2 inh PO Q4H PRN 12/19/16 Atazanavir [Reyataz -] 300 mg PO HS 12/19/16 Budesonide/Formeterol Fumarate [SYMBICORT 80/4.5mcg -] 1 inh PO BID 12/19/16 Clindamycin [Cleocin -] 450 mg PO Q8H #63 capsule 12/19/16 Emtricitabine/Tenofovir [Truvada] 1 tab PO HS 12/19/16 Ritonavir [Norvir -] 100 mg PO HS 12/19/16 Quetiapine Fumarate [Seroquel -] 50 mg PO HS #30 tablet 12/20/16 - Diagnosis (1) Cannabis dependence, uncomplicated Status: Acute (2) Cellulitis Status: Acute Qualifiers: Site of cellulitis: extremity Site of cellulitis of extremity: upper extremity Laterality: right Qualified Code(s): L03.113 - Cellulitis of right upper limb (3) Cocaine dependence, uncomplicated Status: Acute (4) Opioid dependence with withdrawal Status: Acute (5) COPD (chronic obstructive pulmonary disease) Status: Chronic Qualifiers: COPD type: unspecified COPD Qualified Code(s): J44.9 - Chronic obstructive pulmonary disease, unspecified (6) Nicotine dependence Status: Acute Qualifiers: Nicotine product type: cigarettes Substance use status: uncomplicated Qualified Code(s): F17.210 - Nicotine dependence, cigarettes, uncomplicated (7) HIV (human immunodeficiency virus infection) Status: Chronic (8) Hypertension Status: Chronic Qualifiers: Hypertension type: essential hypertension Qualified Code(s): I10 - Essential (primary) hypertension (9) Insomnia Status: Acute Qualifiers: Insomnia type: unspecified Qualified Code(s): G47.00 - Insomnia, unspecified - AMA Did Patient Leave Against Medical Advice: No
== END 2016-12-24 10:50 | disposition home or self-care (01) | DRG 199 ==
LOC: YASAS 08:27 → Y3N 17:28
PROVIDERS: ADMIT Internal Medicine; ATTEND Internal Medicine
PROC: HZ2ZZZZ Detoxification Services for Substance Abuse Treatment (ICD-10-PCS; principal; 2016-12-19)
DX: I10 Essential (primary) hypertension (principal); F11.23 Opioid dependence with withdrawal; F14.20 Cocaine dependence, uncomplicated; F12.20 Cannabis dependence, uncomplicated; F17.210 Nicotine dependence, cigarettes, uncomplicated; F31.9 Bipolar disorder, unspecified; F41.8 Other specified anxiety disorders; L03.113 Cellulitis of right upper limb; J44.9 Chronic obstructive pulmonary disease, unspecified; G47.00 Insomnia, unspecified; Z21 Asymptomatic human immunodeficiency virus [HIV] infection status
CPT/HCPCS: 36415; 80053; 81003; 81015; 85027; 85660; 86593; 93005; 93010; 94640

== ENCOUNTER 2016-12-19 11:12 | Emergency (ER) | payer OTHER ==
[2016-12-19 11:34] VITALS: TEMP 97.4; BMI 23.1
--- NOTE | 2016-12-19 13:23 | PDOC ---
History of Present Illness - History of Present Illness Initial Comments: 12/19/16 13:36 The patient is a 61 year old male, with a significant past medical history of heroin and cocaine abuse, copd, hiv+ (since 1989), and bipolar disorder, who was BIBA from [facility] c/o right elbow erythema and edema. Patient has had this elbow pain for 3-4 weeks. He is unable to flex or extend his without experiencing pain. He describes his pain as sharp, constant, and rates it 7/8- 10. He also has a hernia that is painful upon palpation that developed 3-4 weeks ago. He is an avid IV heroin and crack cocaine user and he last used this morning around 5 am. He states he is currently going through withdrawals. He also states he has been coughing up green phlegm recently. He states he has been short of breath recently whenever he goes outside in the cold. He complains of associated chills. He denies any recent fevers, headache or dizziness. He denies any recent nausea , vomit, diarrhea or constipation. He denies any recent chest pain. He denies any recent dysuria, frequency, urgency or hematuria. Allergies: NKA Social History: History of drug abuse ( IV heroin & crack-cocaine). Occasional cigarette use (4-5 cigarettes a day). Denies alcohol use. Primary Care Physician: Williams Berg <Antoinette Pop - Last Filed: 12/19/16 13:36> <Carisa Huynh - Last Filed: 12/19/16 15:13> - General Chief Complaint: Edema Stated Complaint: PAIN Time Seen by Provider: 12/19/16 12:01 Past History <Antoinette Pop - Last Filed: 12/19/16 13:36> - Past Medical History Asthma: No Cardiac Disorders: No COPD: Yes (Pt is on MDI) Diabetes: No GI Disorders: No Disorders: No HTN: Yes Kidney Stones: No Seizures: No - Surgical History Orthopedic Surgery: Yes (sx to R wrist knee and ankle 01/21) - Reproductive History Testicular Surgery: No - Immunization History Immunization Up to Date: Yes - Suicide/Smoking/Psychosocial Hx Smoking History: Current every day smoker Have you smoked in the past 12 months: No Number of Cigarettes Smoked Daily: 4 Information on smoking cessation initiated: No Hx Alcohol Use: No Drug/Substance Use Hx: Yes (Heroin) Substance Use Type: Cocaine, Heroin, Marijuana Hx Substance Use Treatment: Yes <Carisa Huynh - Last Filed: 12/19/16 15:13> - Past Medical History Allergies/Adverse Reactions: Allergies Allergy/AdvReac Type Severity Reaction Status Date / Time No Known Allergies Allergy Verified 12/19/16 11:26 Home Medications: Ambulatory Orders Albuterol Sulfate Inhaler - [Ventolin Hfa Inhaler -] 2 inh PO Q4H PRN 12/19/16 Atazanavir [Reyataz -] 300 mg PO HS 12/19/16 Budesonide/Formeterol Fumarate [SYMBICORT 80/4.5mcg -] 1 inh PO BID 12/19/16 Clindamycin [Cleocin -] 450 mg PO Q8H #63 capsule 12/19/16 Emtricitabine/Tenofovir [Truvada] 1 tab PO HS 12/19/16 Ritonavir [Norvir -] 100 mg PO HS 12/19/16 Review of Systems - Review of Systems Comments:: 12/19/16 13:37 GENERAL/CONSTITUTIONAL: +chills. No fever. No weakness. HEAD, EYES, EARS, NOSE AND THROAT: No change in vision. No ear pain or discharge. No sore throat. GASTROINTESTINAL: No nausea, vomiting, diarrhea or constipation. GENITOURINARY: No dysuria, frequency, or change in urination. CARDIOVASCULAR: +Shortness of breath. No chest pain. RESPIRATORY: + productive cough (green phlegm), no wheezing, or hemoptysis. MUSCULOSKELETAL: +right elbow swelling and pain. No neck or back pain. SKIN: +right elbow errythema/edema. No rash NEUROLOGIC: No headache, vertigo, loss of consciousness, or change in strength. ENDOCRINE: No increased thirst. No abnormal weight change. HEMATOLOGIC/LYMPHATIC: No anemia, easy bleeding, or history of blood clots. ALLERGIC/IMMUNOLOGIC: No hives or skin allergy. <Antoinette Pop - Last Filed: 12/19/16 13:36> *Physical Exam - Vital Signs Last Vital Signs Temp Pulse Resp BP Pulse Ox 97.4 F L 91 H 16 134/87 97 12/19/16 11:27 12/19/16 11:54 12/19/16 11:27 12/19/16 11:27 12/19/16 11:54 <Antoinette Pop - Last Filed: 12/19/16 13:36> - Vital Signs Last Vital Signs Temp Pulse Resp BP Pulse Ox 97.4 F L 91 H 16 134/87 97 12/19/16 11:27 12/19/16 11:54 12/19/16 11:27 12/19/16 11:27 12/19/16 11:54 - Physical Exam Comments: GENERAL: Awake, alert, and fully oriented, in no acute distress HEAD: No signs of trauma EYES: PERRLA, EOMI, sclera anicteric, conjunctiva clear ENT: Auricles normal inspection, hearing grossly normal, nares patent, oropharynx clear without exudates. Moist mucosa NECK: Normal ROM, supple, no lymphadenopathy, JVD, or masses LUNGS: Breath sounds equal, clear to auscultation bilaterally. No wheezes, and no crackles HEART: Regular rate and rhythm, normal S1 and S2, no murmurs, rubs or gallops ABDOMEN: Soft, nontender, normoactive bowel sounds. No guarding, no rebound. No masses EXTREMITIES: R elbow with posterior edema, erythema, warmth. No induration or fluctuance. Limited ROM due to pain. Remainder of extremities with normal range of motion, no edema. No clubbing or cyanosis. No cords, erythema, or tenderness NEUROLOGICAL: Cranial nerves II through XII grossly intact. Normal speech, normal gait SKIN: Warm, Dry, normal turgor, no rashes or lesions noted. <Carisa Huynh - Last Filed: 12/19/16 15:13> ED Treatment Course - Medications Given in the ED: ED Medications Discontinued Medications Generic Name Dose Route Start Last Admin Trade Name Freq PRN Reason Stop Dose Admin Oxycodone/Acetaminophen 1 combo 12/19/16 13:24 12/19/16 13:27 Percocet 5/325 - PO 12/19/16 13:25 Not Given ONCE ONE <Antoinette Pop - Last Filed: 12/19/16 13:36> - LABORATORY CBC & Chemistry Diagram: 12/19/16 13:27 12/19/16 13:27 <Carisa Huynh - Last Filed: 12/19/16 15:13> Medical Decision Making - Medical Decision Making 12/19/16 14:01 Pt with cellulitis to the R elbow. Will obtain XR to r/o gas forming organisms. Sono to r/o abscess. IV abx. <Carisa Huynh - Last Filed: 12/19/16 15:13> *DC/Admit/Observation/Transfer - Attestations Scribe Attestion: 12/19/16 13:41 Documentation prepared by Antoinette Pop, acting as medical sales specialist for Carisa Huynh MD. <Antoinette Pop - Last Filed: 12/19/16 13:36> - Discharge Dispostion Admit: No <Carisa Huynh - Last Filed: 12/19/16 15:13> Diagnosis at time of Disposition: Cellulitis Qualifiers: Site of cellulitis: extremity Site of cellulitis of extremity: upper extremity Laterality: right Qualified Code(s): L03.113 - Cellulitis of right upper limb - Discharge Dispostion Disposition: HOME Condition at time of disposition: Stable - Prescriptions Prescriptions: Clindamycin [Cleocin -] 450 mg PO Q8H #63 capsule
[2016-12-19] MEDS ORDERED: CLINDAMYCIN 600MG PREMIX IVPB 600 MG/50 ML BAG IVPB ONE ×2 (13:24→13:30)
[2016-12-19] MEDS ORDERED: SODIUM CHLORIDE 1,000 ML IV STA (13:24)
[2016-12-19 14:06] LABS: BASOPHIL 0.2 % (0-2.0); EOSINOPHIL 0.1 % (0-4.5); MCHC 32.2 g/dl (32.0-35.9); MEAN CELL VOLUME 80.6 fl (80-96); MEAN PLT VOLUME 8.3 fl (7.5-11.1); NEUTROPHILS 82.3 % (42.8-82.8); PLATELET COUNT 290 K/MM3 (134-434); RDW 16.6 % (11.9-15.9); WHITE BLOOD COUNT 9.5 K/mm3 (4.0-10.0)
[2016-12-19 14:31] LABS: ALBUMIN 3.2 g/dl (3.4-5.0); ANION GAP 7 (8-16); BILIRUBIN,TOTAL 0.6 mg/dL (0.2-1.0); CALCIUM 8.8 mg/dL (8.5-10.1); CO2 27 mmol/L (21-32); CREATININE 0.8 mg/dL (0.7-1.3); GLUCOSE,RANDOM 94 mg/dL (74-106); SGOT/AST 59 U/L (15-37); SGPT/ALT 71 U/L (12-78); TOT PROT 8.3 g/dl (6.4-8.2)
[2016-12-19 14:32] LABS: ALK PHOS 84 U/L (45-117)
[2016-12-19 16:42] VITALS: BP 151/76; PULSE 83
== END 2016-12-19 16:41 | disposition home or self-care (01) ==
LOC: JER 11:12
PROC: 3E03329 Introduction of Other Anti-infective into Peripheral Vein, Percutaneous Approach (ICD-10-PCS; principal; 2016-12-19)
PROC: 3E0337Z Introduction of Electrolytic and Water Balance Substance into Peripheral Vein, Percutaneous Approach (ICD-10-PCS; 2016-12-19)
DX: L03.113 Cellulitis of right upper limb (principal); F11.90 Opioid use, unspecified, uncomplicated; F31.9 Bipolar disorder, unspecified; J44.9 Chronic obstructive pulmonary disease, unspecified; Z21 Asymptomatic human immunodeficiency virus [HIV] infection status
CPT/HCPCS: 36415; 73070-TC-RT; 76882; 80053; 85025; 85651; 87040; 96361; 96365; 99285-25

== ENCOUNTER 2016-12-19 22:21 | Emergency (ER) | payer OTHER ==
--- NOTE | 2016-12-19 22:33 | PDOC ---
History of Present Illness - General History Source: Patient Exam Limitations: No Limitations - History of Present Illness Initial Comments: 12/19/16 22:47 The patient is a 61 year old male, with a significant past medical history of heroin and cocaine abuse, copd, hiv+ (since 1989), and bipolar disorder, who was BIBA from [facility] c/o right elbow erythema and edema, who presents to the emergency department with abdominal pain. Upon presentation the patient states that he is not sure why they sent him to the ED as he is currently not having any kind of pain. He notes that he just wants to go to sleep. He is currently at detox for IV drug abuse. The patient was in the ED earlier today for the same symptom and was discharged after improvement of symptoms. The patient denies chest pain, shortness of breath, headache and dizziness. Denies fever, chills, nausea, vomit, diarrhea and constipation. Denies dysuria, frequency, urgency and hematuria. Allergies: None Past surgical history: sx to R wrist knee and ankle 01/21 Social history: Former smoker (pack a day), heroin and crack <Scooter Bridges - Last Filed: 12/19/16 22:47> <Keira Hernandez - Last Filed: 12/19/16 23:31> - General Stated Complaint: ABD PAIN Time Seen by Provider: 12/19/16 22:28 Past History <Scooter Bridges - Last Filed: 12/19/16 22:47> - Past Medical History Anemia: No Asthma: No Cardiac Disorders: No CVA: No COPD: Yes (Pt is on MDI) Diabetes: No GI Disorders: No Disorders: No HTN: Yes (HCTZ 25 MG PO DAILY) Hypercholesterolemia: No Kidney Stones: No Seizures: No Thyroid Disease: No - Surgical History Orthopedic Surgery: Yes (sx to R wrist knee and ankle 01/21) - Reproductive History Testicular Surgery: No - Immunization History Immunization Up to Date: Yes - Suicide/Smoking/Psychosocial Hx Smoking History: Current every day smoker Have you smoked in the past 12 months: No Number of Cigarettes Smoked Daily: 5 'Breaking Loose' booklet given: 12/12/16 Hx Alcohol Use: No (DENIES) Drug/Substance Use Hx: Yes (HEROIN/CRACK) Substance Use Type: Cocaine, Heroin Hx Substance Use Treatment: Yes (LAST TX AT [facility]) <Keira Hernandez - Last Filed: 12/19/16 23:31> - Past Medical History Allergies/Adverse Reactions: Allergies Allergy/AdvReac Type Severity Reaction Status Date / Time No Known Allergies Allergy Verified 12/19/16 22:39 Home Medications: Ambulatory Orders Albuterol Sulfate Inhaler - [Ventolin Hfa Inhaler -] 2 inh PO Q4H PRN 12/19/16 Atazanavir [Reyataz -] 300 mg PO HS 12/19/16 Budesonide/Formeterol Fumarate [SYMBICORT 80/4.5mcg -] 1 inh PO BID 12/19/16 Clindamycin [Cleocin -] 450 mg PO Q8H #63 capsule 12/19/16 Emtricitabine/Tenofovir [Truvada] 1 tab PO HS 12/19/16 Ritonavir [Norvir -] 100 mg PO HS 12/19/16 Abd/GI Specific PMHX - Complaint Specific PMHX Hepatitis: No Pancreatitis: No <Keira Hernandez - Last Filed: 12/19/16 23:31> Review of Systems - Review of Systems Able to Perform ROS?: Yes Comments:: 12/19/16 22:47 GENERAL/CONSTITUTIONAL: No fever or chills. No weakness. HEAD, EYES, EARS, NOSE AND THROAT: No change in vision. No ear pain or discharge. No sore throat.- CARDIOVASCULAR: No chest pain or shortness of breath RESPIRATORY: No cough, wheezing, or hemoptysis. GASTROINTESTINAL: (+) Abdominal pain. No nausea, vomiting, diarrhea or constipation. GENITOURINARY: No dysuria, frequency, or change in urination. MUSCULOSKELETAL: No joint or muscle swelling or pain. No neck or back pain. SKIN: No rash NEUROLOGIC: No headache, vertigo, loss of consciousness, or change in strength/ sensation. ENDOCRINE: No increased thirst. No abnormal weight change HEMATOLOGIC/LYMPHATIC: No anemia, easy bleeding, or history of blood clots. ALLERGIC/IMMUNOLOGIC: No hives or skin allergy. <Scooter Bridges - Last Filed: 12/19/16 22:47> *Physical Exam - Physical Exam Comments: 12/19/16 22:48 GENERAL: Awake, alert, and fully oriented, in no acute distress HEAD: No signs of trauma, normocephalic, atraumatic EYES: PERRLA, EOMI, sclera anicteric, conjunctiva clear ENT: Auricles normal inspection, hearing grossly normal, nares patent, oropharynx clear without exudates. Moist mucosa NECK: Normal ROM, supple, no lymphadenopathy, JVD, or masses LUNGS: (+) Scant wheezes. No distress, speaks full sentences, HEART: Regular rate and rhythm, normal S1 and S2, no murmurs, rubs or gallops, peripheral pulses normal and equal bilaterally. ABDOMEN: (+) Reproducible ventral hernia. Soft, nontender, normoactive bowel sounds. No guarding, no rebound. No masses EXTREMITIES : Normal inspection, Normal range of motion, no edema. No clubbing or cyanosis. NEUROLOGICAL: Cranial nerves II through XII grossly intact. Normal speech, normal gait, no focal sensorimotor deficits SKIN: Warm, Dry, normal turgor, no rashes or lesions noted. <Scooter Bridges - Last Filed: 12/19/16 22:47> Medical Decision Making - Medical Decision Making 12/19/16 22:59 This 61-year-old male brought in by ambulance from [facility] for abdominal pain. I read the note written by the staff at [facility] detox stated that the patient was complaining of severe abdominal pain and that there was a bulge above his umbilicus. On physical exam, he does have a ventral hernia but it is not incarcerated, it is totally reducible, he is no erythema or induration of the area. His abdomen is soft, nondistended and there is no guarding. He has no fever, no nausea, no vomiting and oriented. He denies any abdominal pain at this time. I did call [facility] extension 08/15/2003 and spoke to the attending, who said that she was concerned because the ventral hernia was not addressed on his prior visit today. Ventral hernia is totally asymptomatic and there is no evidence at this time of an abdominal process. I reviewed his labs. They are unremarkable and he has no symptoms associated with an abdominal process. Plan patient will be discharged back to [facility] and if there are any other further concerns, of course, he will be sent back for further imaging studies and evaluation <Keira Hernandez - Last Filed: 12/19/16 23:31> *DC/Admit/Observation/Transfer - Attestations Scribe Attestion: 12/19/16 22:48 Documentation prepared by Scooter Bridges, acting as medical record retrieval specialist for Keira Hernandez MD <Scooter Bridges - Last Filed: 12/19/16 22:47> <Keira Hernandez - Last Filed: 12/19/16 23:31> Diagnosis at time of Disposition: HIV (human immunodeficiency virus infection), Cocaine dependence, uncomplicated , Cannabis dependence, uncomplicated COPD (chronic obstructive pulmonary disease) Qualifiers: COPD type: unspecified COPD Qualified Code(s): J44.9 - Chronic obstructive pulmonary disease, unspecified - Discharge Dispostion Disposition: HOME - Patient Instructions Printed Discharge Instructions: DI for Ventral Hernia Additional Instructions: Continue your detox treatment at [facility]
[2016-12-19 22:48] VITALS: BP 125/68; PULSE 82; BMI 23.1
[2016-12-19] MEDS ORDERED: ALBUTEROL SO4 2.5/IPRATROPIUM 0.5 INH SOL 3 ML VIAL.NEB. NEB ONE ×2 (22:51→23:03)
== END 2016-12-20 01:02 | disposition home or self-care (01) ==
LOC: JER 22:21
PROC: 3E0F7GC Introduction of Other Therapeutic Substance into Respiratory Tract, Via Natural or Artificial Opening (ICD-10-PCS; principal; 2016-12-19)
DX: J44.9 Chronic obstructive pulmonary disease, unspecified (principal); F11.90 Opioid use, unspecified, uncomplicated; F31.9 Bipolar disorder, unspecified; Z21 Asymptomatic human immunodeficiency virus [HIV] infection status; F17.210 Nicotine dependence, cigarettes, uncomplicated
CPT/HCPCS: 94640; 99282-25

== ENCOUNTER 2017-03-31 12:09 | Inpatient (IN) | payer OTHER ==
[2017-03-31 13:59] VITALS: BMI 24.5
--- NOTE | 2017-03-31 19:45 | HP ---
COWS - Scale Resting Pulse: 0= [place] 80 or Below Sweatin=Flushed/Facial Moisture Restless Observation: 3= Extraneous Movement Pupil Size: 1= Pupils >than Normal Bone or Joint Aches: 2= Severe Diffuse Aches Runny Nose/ Eye Tearin= Runny Nose/Eyes GI Upset > 30mins: 5=Frequent Vomit/Diarrhea (BM x 4 today) Tremor Observation: 2= Slight Tremor Visible Yawning Observation: 1= 1-2x During Session Anxiety or Irritability: 2=Irritable/Anxious Goose Flesh Skin: 3=Piloerection COWS Score: 23 Admission ROS BHS - HPI Chief Complaint: "I don't feel well, I have really bad diarrhea, I going through withdrawal really bad " Allergies/Adverse Reactions: Allergies Allergy/AdvReac Type Severity Reaction Status Date / Time No Known Allergies Allergy Verified 03/31/17 17:00 History of Present Illness: 61 yo male with hx of cocaine / crack, nicotine, and IV heroin dependence is here seeking detox. Patient reports he fell on 03/29/17 and landed in a piece of metal, patient was evaluated at [facility] on 03/30/[address] the left palm, as per patient he was trying to detox at [facility] but was referred to [facility]. . PMHX:COPD, Bipolar d/o, HIV+, CD4 count currently does not know, currently on HARRT therapy and reports compliance. Last detox at [facility] 12/19 - 12/24/16. Longest period of sobriety 2 years. Denies suicidal / homicidal ideation or suicide attempts. Exam Limitations: No Limitations - Ebola screening Have you traveled outside of the country in the last 21 days: No Have you had contact with anyone from an Ebola affected area: No Have you been sick,other than usual withdrawal symptoms: No Do you have a fever: No - Review of Systems Constitutional: Chills, Loss of Appetite, Changes in sleep, Weakness, Unintentional Wgt. Loss (45 lbs , 30 days) EENT: reports: No Symptoms Reported Respiratory: reports: SOB with Exertion (2 - 3 blocks) Cardiac: reports: No Symptoms Reported GI: reports: Diarrhea, Poor Appetite, Poor Fluid Intake, Abdominal cramping : reports: No Symptoms Reported Musculoskeletal: reports: Joint Pain Integumentary: reports: No Symptoms Reported Neuro: reports: Tingling (right hand), Tremors Endocrine: reports: Change in Weight Hematology: reports: No Symptoms Reported Psychiatric: reports: Orientated x3, Anxious Other Systems: Reviewed and Negative Patient History - Patient Medical History Hx Anemia: No Hx Asthma: No Hx Chronic Obstructive Pulmonary Disease (COPD): Yes (Pt is on MDI) Hx Cancer: No Hx Cardiac Disorders: No Hx Congestive Heart Failure: No Hx Hypertension: Yes (HCTZ 25 MG PO DAILY) Hx Hypercholesterolemia: No HX Cerebrovascular Accident: No Hx Seizures: No Hx Dementia: No Hx Diabetes: No Hx Gastrointestinal Disorders: No Hx Liver Disease: No Hx Genitourinary Disorders: No Hx Sexually Transmitted Disorders: No Hx Renal Disease (ESRD): No Hx Thyroid Disease: No Hx Human Immunodeficiency Virus (HIV): Yes (SINCE 1989;ON TRUVADA,REYATAZ, NORVIR.) Hx Hepatitis C: Yes (TREATED) Hx Depression: Yes (AND ANXIETY) Hx Suicide Attempt: No (DENIES) Hx Bipolar Disorder: Yes (ON MED) Hx Schizophrenia: No - Patient Surgical History Past Surgical History: Yes Hx Neurologic Surgery: No Hx Cataract Extraction: No Hx Cardiac Surgery: No Hx Lung Surgery: No Hx Breast Surgery: No Hx Breast Biopsy: No Hx Abdominal Surgery: No Hx Appendectomy: No Hx Cholecystectomy: No Hx Genitourinary Surgery: No Hx Section: No Hx Orthopedic Surgery: Yes (sx to R wrist knee and ankle 01/21) Anesthesia Reaction: No - PPD History Previous Implant?: Yes Date: 12/21/16 Results: negative PPD to be Administered?: No - Smoking Cessation Smoking history: Current every day smoker Have you smoked in the past 12 months: No Aproximately how many cigarettes per day: 5 Hx Chewing Tobacco Use: No Initiated information on smoking cessation: Yes 'Breaking Loose' booklet given: 03/31/17 - Substance & Tx. History Hx Alcohol Use: No Hx Substance Use: Yes Substance Use Type: Cocaine Hx Substance Use Treatment: Yes ([facility] 12/19/16 - 12/24/16) - Substances Abused Crack Route: Smoking Frequency: Daily Amount used: 10 bags a day Age of first use: 31 Date of Last Use: 03/31/17 Heroin Route: Injection Frequency: Daily Amount used: 10bags Age of first use: 16 Date of Last Use: 03/31/17 Family Disease History - Family Disease History Family Disease History: Diabetes: Mother (HTN-), Other: Father ( ALCOHOLISM/CIRRHOSIS-), Mother Admission Physical Exam S - Vital Signs Vital Signs: Vital Signs - 24 hr 03/31/17 13:58 Temperature 97.7 F Pulse Rate 78 Respiratory 18 Rate Blood Pressure 109/63 - Physical General Appearance: Yes: Disheveled, Mild Distress, Thin, Irritable, Sweating, Anxious HEENTM: Yes: Hearing grossly Normal, Normal ENT Inspection, Normocephalic, Normal Voice, Pharynx Normal, Tm's normal, Other (poor dentation) Respiratory: Yes: Chest Non-Tender, Lungs Clear, Normal Breath Sounds, No Respiratory Distress, No Accessory Muscle Use Neck: Yes: No masses,lesions,Nodules, Trachea in good position Breast: Yes: Breast Exam Deferred Cardiology: Yes: Regular Rhythm, Regular Rate, S1, S2 Abdominal: Yes: Normal Bowel Sounds, Non Tender, Flat, Soft Genitourinary: Yes: Within Normal Limits Back: Yes: Normal Inspection Musculoskeletal: Yes: full range of Motion, Gait Steady, Pelvis Stable Extremities: Yes: Normal Capillary Refill, Normal Inspection, Normal Range of Motion, Non-Tender Neurological: Yes: cross country coach II-XII NML intact, Fully Oriented, Alert, Motor Strength 5/5, Depressed Affect Integumentary: Yes: Normal Color, Dry, Warm, Other (stitches on the left palm, no signs of infection) Lymphatic: Yes: Within Normal Limits - Diagnostic (1) Laceration of left hand with foreign body Current Visit: Yes Status: Acute Qualifiers: Encounter type: initial encounter Qualified Code(s): S61.422A - Laceration with foreign body of left hand, initial encounter (2) IVDU (intravenous drug user) Current Visit: Yes Status: Chronic (3) Dehydration Current Visit: Yes Status: Acute (4) Psychiatric disorder Current Visit: Yes Status: Chronic (5) Cocaine dependence, uncomplicated Current Visit: Yes Status: Chronic (6) Nicotine dependence Current Visit: No Status: Chronic Qualifiers: Nicotine product type: cigarettes Substance use status: uncomplicated Qualified Code(s): F17.210 - Nicotine dependence, cigarettes, uncomplicated (7) Opioid dependence with withdrawal Current Visit: Yes Status: Acute (8) COPD (chronic obstructive pulmonary disease) Current Visit: Yes Status: Chronic Qualifiers: COPD type: unspecified COPD Qualified Code(s): J44.9 - Chronic obstructive pulmonary disease, unspecified (9) HIV (human immunodeficiency virus infection) Current Visit: Yes Status: Chronic (10) Hypertension Current Visit: Yes Status: Chronic Qualifiers: Hypertension type: essential hypertension Qualified Code(s): I10 - Essential (primary) hypertension (11) Weight loss Current Visit: Yes Status: Acute Cleared for Admission BHS - Detox or Rehab S Level of Care: Medically Managed Detox Regimen/Protocol: Methadone S Breath Alcohol Content Breath Alcohol Content: 0 Urine Drug Screen - Results Drug Screen Negative: No Urine Drug Screen Results: MARIFER-Cocaine, OPI-Opiates, MTD-Methadone
[2017-03-31] MEDS ORDERED: MAGNESIUM HYDROX 2400MG/30ML ORAL SUSPENSION 30 ML CUP PO PRN (19:51)
[2017-03-31] MEDS ORDERED: guaiFENesin/D-METHORPHAN HB 10 ML UNIT-DOSE CUPS PO PRN (19:51)
[2017-03-31] MEDS ORDERED: LOPERAMIDE HCL 2 MG CAPSULE PO PRN (19:51)
[2017-03-31] MEDS ORDERED: hydrOXYzine PAMOATE 50 MG CAPSULE (FP) PO PRN (19:51)
[2017-03-31] MEDS ORDERED: NICOTINE POLACRILEX 2 MG GUM BUC PRN (19:51)
[2017-03-31] MEDS ORDERED: MENTHOL/PHENOL 1 EACH UD MM PRN (19:51)
[2017-03-31] MEDS ORDERED: P-EPHED 60MG/TRIPROLIDI 2.5MG TABLET PO PRN (19:51)
[2017-03-31] MEDS ORDERED: MAGNESIUM CITRATE 300 ML BOTTLE PO PRN (19:51)
[2017-03-31] MEDS ORDERED: ACETAMINOPHEN 325 MG TABLET (FP) PO PRN (19:51)
[2017-03-31] MEDS ORDERED: ALBUTEROL SO4 18 GM HFA INHALER IH PRN (19:53)
[2017-03-31] MEDS ORDERED: METHADONE HCL 10 MG TABLET (FOR DETOX USE ONLY) PO ONE ×2 (20:15→23:00)
[2017-03-31] MEDS: BUDESONIDE/FORMETEROL FUMARATE 80/4.5 mcg INHALER IH SCH (22:17)
[2017-03-31] MEDS: ATAZANAVIR SO4 300 MG CAPSULE PO SCH (22:17)
[2017-03-31] MEDS: THIAMINE HCL 100 MG TABLET (FP) PO SCH (22:17)
[2017-03-31] MEDS: BACITRACIN 15 GM TUBE TOPICAL OINTMENT TP SCH (22:24)
[2017-03-31] MEDS: RITONAVIR 100 MG TABLET PO SCH (22:24)
[2017-03-31] MEDS: EMTRICITABINE 200MG/TENOFOVIR 300MG PO SCH (22:24)
[2017-03-31 22:53] LABS: URINE APPEARANCE SLCLOUDY; URINE BILIRUBIN NEGATIVE (NEGATIVE); URINE BLOOD NEGATIVE (NEGATIVE); URINE COLOR YELLOW; URINE GLUCOSE (UA) NEGATIVE (NEGATIVE); URINE KETONE NEGATIVE (NEGATIVE); URINE LEUK ESTERASE NEGATIVE (NEGATIVE); URINE NITRITE NEGATIVE (NEGATIVE); URINE PROTEIN NEGATIVE (NEGATIVE); URINE UROBILINOGEN NEGATIVE mg/dL (0.2-1.0)
[2017-03-31] MEDS: CYCLOBENZAPRINE HCL 10 MG TABLET (FP) PO PRN (23:23)
[2017-04-01] MEDS: diazePAM 5 MG TABLET PO PRN ×2 (06:08→10:10)
[2017-04-01] MEDS: CYCLOBENZAPRINE HCL 10 MG TABLET (FP) PO PRN ×3 (06:08→21:21)
[2017-04-01] MEDS ORDERED: METHADONE HCL 10 MG TABLET (FOR DETOX USE ONLY) PO ONE (10:00)
[2017-04-01 10:05] LABS: HEMATOCRIT 40.5 % (35.4-49); HEMOGLOBIN 13.3 GM/dL (11.7-16.9); MCH 26.1 pg (25.7-33.7); MCHC 32.8 g/dl (32.0-35.9); MEAN CELL VOLUME 79.4 fl (80-96); MEAN PLT VOLUME 8.3 fl (7.5-11.1); PLATELET COUNT 235 K/MM3 (134-434); RDW 15.1 % (11.9-15.9); WHITE BLOOD COUNT 6.1 K/mm3 (4.0-10.0)
[2017-04-01 10:08] LABS: CHLORIDE 104 mmol/L (98-107); POTASSIUM 3.9 mmol/L (3.5-5.1); SODIUM 136 mmol/L (136-145)
[2017-04-01 10:27] LABS: ALK PHOS 98 U/L (45-117); ANION GAP 8 (8-16); BILIRUBIN,TOTAL 1.1 mg/dL (0.2-1.0); BLOOD UREA NITROGEN 14 mg/dL (7-18); CALCIUM 7.9 mg/dL (8.5-10.1); CO2 24 mmol/L (21-32); GLUCOSE,RANDOM 92 mg/dL (74-106); SGOT/AST 38 U/L (15-37); SGPT/ALT 37 U/L (12-78)
[2017-04-01] MEDS: PRENATAL VITAMINS W/ FOLIC ACID TABLET (FP) PO SCH (10:58)
[2017-04-01] MEDS: BACITRACIN 15 GM TUBE TOPICAL OINTMENT TP SCH ×2 (10:58→22:49)
[2017-04-01] MEDS: NICOTINE 14 MG/24 HOURS TOPICAL PATCH TD SCH (11:00)
[2017-04-01] MEDS: BUDESONIDE/FORMETEROL FUMARATE 80/4.5 mcg INHALER IH SCH ×2 (11:00→22:50)
--- NOTE | 2017-04-01 12:07 | CONSULT ---
[facility] Psychiatric Consult - Data Date of interview: 04/01/17 Admission source: [facility] Identifying data: Readmission to [facility] for this 61 y/o male seeking detox treatment on for heroin and cocaine dependence.Patient is single,a father of three,domiciled,unemployed and supported on SSI benefits. Substance Abuse History: Discussed with the patient in this interview.Mr Dixon confirmed this [facility] report as an accurate version of his addictions.Details as follows : Smoking history: Current every day smoker. Have you smoked in the past 12 months: No. Aproximately how many cigarettes per day: 5. Hx Chewing Tobacco Use: No. Initiated information on smoking cessation: Yes. 'Breaking Loose' booklet given: 03/31/17. - Substance & Tx. History. Hx Alcohol Use: No. Hx Substance Use: Yes. Substance Use Type: Cocaine. Hx Substance Use Treatment: Yes ([facility] 12/19/16 - 12/24/16). - Substances Abused. Crack. Route: Smoking. Frequency: Daily. Amount used: 10 bags a day. Age of first use: 31. Date of Last Use: 03/31/17. Heroin. Route: Injection. Frequency: Daily. Amount used: 10bags. Age of first use: 16. Date of Last Use: 03/31/17 Medical History: HIV infection since 1989 (on ART medications),COPD,hypertension ,hepatitis C.Noted remote history of orthosurgery for injury to right wrist, ankle and right knee (2016) Psychiatric History: Patient denies history of psychiatric hospitalizations.Mr Dixon declares,however,that he is in outpatient treatment at the [facility] clinic on [facility]).Prescribed xanax (dose not recalled) by his psychiatrist,Dr Barrera Marks (self-report).Diagnosed with Bipolar Disorder.Patient denies history of suicide attempts. Physical/Sexual Abuse/Trauma History: Patient denies. Additional Comment: Urine Drug Screen Results: MARIFER-Cocaine, OPI-Opiates, MTD- Methadone.Noted. Mental Status Exam - Mental Status Exam Alert and Oriented to: Time, Place, Person Cognitive Function: Good Patient Appearance: Well Groomed Mood: Withdrawn, Hopeful Affect: Appropriate, Normal Range Patient Behavior: Fatigued, Appropriate, Cooperative Speech Pattern: Clear, Appropriate Voice Loudness: Normal Thought Process: Intact, Goal Oriented Thought Disorder: Not Present Hallucinations: Denies Suicidal Ideation: Denies Homicidal Ideation: Denies Insight/Judgement: Poor Sleep: Well Appetite: Good Muscle strength/Tone: Normal Additional Comments: gait not observed; patient in bed during entire interview conducted at bedside Psychiatric Findings - Problem List ([place] 1, 2,3) (1) Opioid dependence with withdrawal Current Visit: Yes Status: Acute (2) Cocaine dependence, uncomplicated Current Visit: Yes Status: Acute (3) Nicotine dependence Current Visit: Yes Status: Acute Qualifiers: Nicotine product type: cigarettes Substance use status: uncomplicated Qualified Code(s): F17.210 - Nicotine dependence, cigarettes, uncomplicated (4) Substance induced mood disorder Current Visit: Yes Status: Acute - Initial Treatment Plan Initial Treatment Plan: Psychoeducation.Detoxification in progress.Observation.
--- NOTE | 2017-04-01 16:56 | PN ---
S COWS - Scale Resting Pulse: 1= [place] 81-100 Sweatin= Chills/Flushing Restless Observation: 1= Difficult to Sit Still Pupil Size: 0= Normal to Room Light Bone or Joint Aches: 2= Severe Diffuse Aches Runny Nose/ Eye Tearin= None GI Upset > 30mins: 2= Nausea/Diarrhea Tremor Observation of Outstretched Hands: 0= None Yawning Observation: 1= 1-2x During Session Anxiety or Irritability: 2=Irritable/Anxious Goose Flesh Skin: 3=Piloerection COWS Score: 13 BHS Progress Note (SOAP) Subjective: Body Aches, Fatigue, Anxious, Diarrhea. Objective: PT. A & O X 3, OBSERVED AMBULATING ON UNIT. NO ACUTE DISTRESS. 04/01/17 16:54 Vital Signs Temperature 97.2 F L 04/01/17 13:58 Pulse Rate 83 04/01/17 13:58 Respiratory Rate 18 04/01/17 13:58 Blood Pressure 109/72 04/01/17 13:58 O2 Sat by Pulse Oximetry (%) Laboratory Tests 03/31/17 04/01/17 04/01/17 20:13 07:40 07:40 WBC 6.1 RBC 5.10 Hgb 13.3 Hct 40.5 MCV 79.4 L MCH 26.1 MCHC 32.8 RDW 15.1 Plt Count 235 MPV 8.3 Sodium 136 Potassium 3.9 Chloride 104 Carbon Dioxide 24 Anion Gap 8 BUN 14 D Creatinine 1.0 Creat Clearance w eGFR > 60 Random Glucose 92 Calcium 7.9 L Total Bilirubin 1.1 H D AST 38 H D ALT 37 D Alkaline Phosphatase 98 Total Protein 7.0 Albumin 3.0 L Urine Color Yellow Urine Appearance Slcloudy Urine pH 5.0 D Ur Specific [place] 1.024 Urine Protein Negative Urine Glucose (UA) Negative Urine Ketones Negative Urine Blood Negative Urine Nitrite Negative Urine Bilirubin Negative Urine Urobilinogen Negative Ur Leukocyte Esterase Negative RPR Titer 04/01/17 07:40 WBC RBC Hgb Hct MCV MCH MCHC RDW Plt Count MPV Sodium Potassium Chloride Carbon Dioxide Anion Gap BUN Creatinine Creat Clearance w eGFR Random Glucose Calcium Total Bilirubin AST ALT Alkaline Phosphatase Total Protein Albumin Urine Color Urine Appearance Urine pH Ur Specific [place] Urine Protein Urine Glucose (UA) Urine Ketones Urine Blood Urine Nitrite Urine Bilirubin Urine Urobilinogen Ur Leukocyte Esterase RPR Titer Nonreactive LABS NOTED. Assessment: 04/01/17 16:55 WITHDRAWAL SYMPTOMS. Plan: CONTINUE DETOX.
[2017-04-01] MEDS: RITONAVIR 100 MG TABLET PO SCH (22:50)
[2017-04-01] MEDS: THIAMINE HCL 100 MG TABLET (FP) PO SCH (22:50)
[2017-04-01] MEDS: ATAZANAVIR SO4 300 MG CAPSULE PO SCH (22:50)
[2017-04-01] MEDS: EMTRICITABINE 200MG/TENOFOVIR 300MG PO SCH (22:50)
[2017-04-01] MEDS: MAG HYDROX/AL HYDROX/SIMETH 30 ML UNIT-DOSE CUP PO PRN (22:58)
[2017-04-02] MEDS: diazePAM 5 MG TABLET PO PRN ×3 (05:38→22:28)
[2017-04-02] MEDS: IBUPROFEN 400 MG TABLET (FP) PO PRN (06:54)
[2017-04-02] MEDS: CYCLOBENZAPRINE HCL 10 MG TABLET (FP) PO PRN (06:54)
[2017-04-02] MEDS ORDERED: METHADONE HCL 5 MG TABLET (FOR DETOX USE ONLY) PO ONE (10:00)
[2017-04-02] MEDS: BUDESONIDE/FORMETEROL FUMARATE 80/4.5 mcg INHALER IH SCH ×2 (10:26→22:28)
[2017-04-02] MEDS: BACITRACIN 15 GM TUBE TOPICAL OINTMENT TP SCH ×2 (10:26→22:28)
[2017-04-02] MEDS: NICOTINE 14 MG/24 HOURS TOPICAL PATCH TD SCH (10:26)
[2017-04-02] MEDS: PRENATAL VITAMINS W/ FOLIC ACID TABLET (FP) PO SCH (10:27)
--- NOTE | 2017-04-02 16:18 | PN ---
BHS COWS - Scale Resting Pulse: 1= [place] 81-100 Sweatin=Flushed/Facial Moisture Restless Observation: 1= Difficult to Sit Still Pupil Size: 0= Normal to Room Light Bone or Joint Aches: 2= Severe Diffuse Aches Runny Nose/ Eye Tearin= Nasal Congestion GI Upset > 30mins: 1= Stomach Cramp Tremor Observation of Outstretched Hands: 2= Slight Tremor Visible Yawning Observation: 1= 1-2x During Session Anxiety or Irritability: 2=Irritable/Anxious Goose Flesh Skin: 0=Smooth Skin COWS Score: 13 BHS Progress Note (SOAP) Subjective: back ache sweats sleep disturbance shakes Objective: 04/02/17 16:17 A& O x 3 Noted ambulating steadily not in acute distress Assessment: 04/02/17 16:17 withdrawal sx Plan: continue detox lidocaine patch
[2017-04-02] MEDS: LIDOCAINE 5% TOPICAL PATCH TP SCH (16:30)
[2017-04-02] MEDS: LIDOCAINE PATCH REMOVAL MC SCH (22:28)
[2017-04-02] MEDS: THIAMINE HCL 100 MG TABLET (FP) PO SCH (22:28)
[2017-04-02] MEDS: RITONAVIR 100 MG TABLET PO SCH (22:28)
[2017-04-02] MEDS: ATAZANAVIR SO4 300 MG CAPSULE PO SCH (22:28)
[2017-04-02] MEDS: EMTRICITABINE 200MG/TENOFOVIR 300MG PO SCH (22:28)
[2017-04-03] MEDS: diazePAM 5 MG TABLET PO PRN ×2 (05:18→10:32)
[2017-04-03] MEDS: CYCLOBENZAPRINE HCL 10 MG TABLET (FP) PO PRN ×2 (05:18→17:57)
[2017-04-03] MEDS ORDERED: METHADONE HCL 5 MG TABLET (FOR DETOX USE ONLY) PO ONE (10:00)
[2017-04-03] MEDS: PRENATAL VITAMINS W/ FOLIC ACID TABLET (FP) PO SCH (10:33)
[2017-04-03] MEDS: BUDESONIDE/FORMETEROL FUMARATE 80/4.5 mcg INHALER IH SCH ×2 (10:33→22:52)
[2017-04-03] MEDS: BACITRACIN 15 GM TUBE TOPICAL OINTMENT TP SCH ×2 (10:35→22:52)
[2017-04-03] MEDS: LIDOCAINE 5% TOPICAL PATCH TP SCH (10:35)
[2017-04-03] MEDS: NICOTINE 14 MG/24 HOURS TOPICAL PATCH TD SCH (10:35)
--- NOTE | 2017-04-03 13:02 | PN ---
BHS Progress Note (SOAP) Subjective: shakes sweats sleep disturbance Objective: 04/03/17 12:59 A & O x 3 Ambulatory with steady gait anxious Vital Signs Temperature 96.6 F L 04/03/17 09:56 Pulse Rate 97 H 04/03/17 09:56 Respiratory Rate 18 04/03/17 09:56 Blood Pressure 107/73 04/03/17 09:56 O2 Sat by Pulse Oximetry (%) Assessment: 04/03/17 13:00 withdrawal sx Plan: continue detox continue hydration
[2017-04-03] MEDS: IBUPROFEN 400 MG TABLET (FP) PO PRN (17:57)
[2017-04-03] MEDS: ATAZANAVIR SO4 300 MG CAPSULE PO SCH (22:12)
[2017-04-03] MEDS: RITONAVIR 100 MG TABLET PO SCH (22:12)
[2017-04-03] MEDS: THIAMINE HCL 100 MG TABLET (FP) PO SCH (22:12)
[2017-04-03] MEDS: EMTRICITABINE 200MG/TENOFOVIR 300MG PO SCH (22:13)
[2017-04-03] MEDS: LIDOCAINE PATCH REMOVAL MC SCH (22:52)
[2017-04-04] MEDS: IBUPROFEN 400 MG TABLET (FP) PO PRN (05:27)
[2017-04-04] MEDS ORDERED: METHADONE HCL 10 MG TABLET (FOR DETOX USE ONLY) PO ONE (10:00)
[2017-04-04] MEDS: BUDESONIDE/FORMETEROL FUMARATE 80/4.5 mcg INHALER IH SCH ×2 (10:22→22:14)
[2017-04-04] MEDS: CYCLOBENZAPRINE HCL 10 MG TABLET (FP) PO PRN ×2 (10:23→22:13)
[2017-04-04] MEDS: BACITRACIN 15 GM TUBE TOPICAL OINTMENT TP SCH ×2 (10:24→22:13)
[2017-04-04] MEDS: PRENATAL VITAMINS W/ FOLIC ACID TABLET (FP) PO SCH (10:24)
[2017-04-04] MEDS: LIDOCAINE 5% TOPICAL PATCH TP SCH (10:26)
[2017-04-04] MEDS: NICOTINE 14 MG/24 HOURS TOPICAL PATCH TD SCH (10:26)
--- NOTE | 2017-04-04 12:17 | PN ---
BHS Progress Note (SOAP) Subjective: Fatigue, Body Aches. Objective: PATIENT A & O X 3, OBSERVED AMBULATING ON UNIT. NO ACUTE DISTRESS. 04/04/17 12:14 Vital Signs Temperature 96.8 F L 04/04/17 09:56 Pulse Rate 95 H 04/04/17 09:56 Respiratory Rate 20 04/04/17 09:56 Blood Pressure 113/71 04/04/17 09:56 O2 Sat by Pulse Oximetry (%) Laboratory Tests 03/31/17 04/01/17 04/01/17 20:13 07:40 07:40 WBC 6.1 RBC 5.10 Hgb 13.3 Hct 40.5 MCV 79.4 L MCH 26.1 MCHC 32.8 RDW 15.1 Plt Count 235 MPV 8.3 Sodium 136 Potassium 3.9 Chloride 104 Carbon Dioxide 24 Anion Gap 8 BUN 14 D Creatinine 1.0 Creat Clearance w eGFR > 60 Random Glucose 92 Calcium 7.9 L Total Bilirubin 1.1 H D AST 38 H D ALT 37 D Alkaline Phosphatase 98 Total Protein 7.0 Albumin 3.0 L Urine Color Yellow Urine Appearance Slcloudy Urine pH 5.0 D Ur Specific [place] 1.024 Urine Protein Negative Urine Glucose (UA) Negative Urine Ketones Negative Urine Blood Negative Urine Nitrite Negative Urine Bilirubin Negative Urine Urobilinogen Negative Ur Leukocyte Esterase Negative RPR Titer 04/01/17 07:40 WBC RBC Hgb Hct MCV MCH MCHC RDW Plt Count MPV Sodium Potassium Chloride Carbon Dioxide Anion Gap BUN Creatinine Creat Clearance w eGFR Random Glucose Calcium Total Bilirubin AST ALT Alkaline Phosphatase Total Protein Albumin Urine Color Urine Appearance Urine pH Ur Specific [place] Urine Protein Urine Glucose (UA) Urine Ketones Urine Blood Urine Nitrite Urine Bilirubin Urine Urobilinogen Ur Leukocyte Esterase RPR Titer Nonreactive LABS NOTED. Assessment: 04/04/17 12:14 WITHDRAWAL SYMPTOMS. Plan: CONTINUE DETOX. WOUND ON PATIENT'S LEFT HAND HEALING WELL. NO SIGNS OF INFECTION NOTED AT SITE. PATIENT REPORTS THAT ER MEDICAL PROVIDER WHO ORIGINALLY PUT STITCHES IN HAND ADVISED PATIENT TO HAVE STITCHES REMOVED AFTER FIVE DAY DAYS. PATIENT SCHEDULED TO GO TO [facility] ([place], [place] FOR REHAB. STITCHES IN LEFT HAND TO BE REMOVED TOMORROW AM PRIOR TO DISCHARGE.
[2017-04-04] MEDS: MAG HYDROX/AL HYDROX/SIMETH 30 ML UNIT-DOSE CUP PO PRN (13:04)
--- NOTE | 2017-04-04 13:36 | EKG ---
Test Reason : Blood Pressure : / mmHG Vent. Rate : 079 BPM Atrial Rate : 079 BPM P-R Int : 140 ms QRS Dur : 082 ms QT Int : 350 ms P-R-T Axes : 068 000 065 degrees QTc Int : 401 ms NORMAL SINUS RHYTHM RSR' OR QR PATTERN IN V1 SUGGESTS RIGHT VENTRICULAR CONDUCTION DELAY VOLTAGE CRITERIA FOR LEFT VENTRICULAR HYPERTROPHY ABNORMAL ECG WHEN COMPARED WITH ECG OF 19-DEC-2016 20:18, NO SIGNIFICANT CHANGE WAS FOUND Confirmed by MD Monte Daniel ([id number]) on 04/04/2017 1:35:57 PM Referred By: Confirmed By:Leonides Monte MD
[2017-04-04] MEDS: THIAMINE HCL 100 MG TABLET (FP) PO SCH (22:12)
[2017-04-04] MEDS: ATAZANAVIR SO4 300 MG CAPSULE PO SCH (22:12)
[2017-04-04] MEDS: LIDOCAINE PATCH REMOVAL MC SCH (22:13)
[2017-04-04] MEDS: RITONAVIR 100 MG TABLET PO SCH (22:14)
[2017-04-04] MEDS: EMTRICITABINE 200MG/TENOFOVIR 300MG PO SCH (22:15)
[2017-04-05] MEDS: IBUPROFEN 400 MG TABLET (FP) PO PRN (04:31)
[2017-04-05] MEDS ORDERED: METHADONE HCL 5 MG TABLET (FOR DETOX USE ONLY) PO ONE (06:00)
[2017-04-05] MEDS: CYCLOBENZAPRINE HCL 10 MG TABLET (FP) PO PRN (07:31)
[2017-04-05] MEDS: LIDOCAINE 5% TOPICAL PATCH TP SCH (10:44)
[2017-04-05] MEDS: PRENATAL VITAMINS W/ FOLIC ACID TABLET (FP) PO SCH (10:44)
[2017-04-05] MEDS: BACITRACIN 15 GM TUBE TOPICAL OINTMENT TP SCH (10:44)
[2017-04-05] MEDS: BUDESONIDE/FORMETEROL FUMARATE 80/4.5 mcg INHALER IH SCH (10:44)
[2017-04-05] MEDS: NICOTINE 14 MG/24 HOURS TOPICAL PATCH TD SCH (10:45)
--- NOTE | 2017-04-05 12:16 | DS ---
[facility] Detox Discharge Summary Admission Date: 03/31/17 Discharge Date: 04/05/17 - History Present History: Cocaine Dependence, Opioid Dependence Additional Comments: PATIENT GOING [facility] FOR AFTERCARE. PATIENT WAS DISCHARGED FROM DETOX UNIT IN STABLE MEDICAL CONDITION. Pertinent Past History: HTN, Dehydration, Depression, Nicotine Dependence, Weight Loss, HIV, COPD, History of Laceration of Left Hand with Foreign Body. - Physical Exam Results Vital Signs: Vital Signs Temperature 96.8 F L 04/05/17 09:10 Pulse Rate 87 04/05/17 09:10 Respiratory Rate 18 04/05/17 09:10 Blood Pressure 113/80 04/05/17 09:10 O2 Sat by Pulse Oximetry (%) Pertinent Admission Physical Exam Findings: WITHDRAWAL SYMPTOMS. Laboratory Tests 03/31/17 04/01/17 04/01/17 20:13 07:40 07:40 WBC 6.1 RBC 5.10 Hgb 13.3 Hct 40.5 MCV 79.4 L MCH 26.1 MCHC 32.8 RDW 15.1 Plt Count 235 MPV 8.3 Sodium 136 Potassium 3.9 Chloride 104 Carbon Dioxide 24 Anion Gap 8 BUN 14 D Creatinine 1.0 Creat Clearance w eGFR > 60 Random Glucose 92 Calcium 7.9 L Total Bilirubin 1.1 H D AST 38 H D ALT 37 D Alkaline Phosphatase 98 Total Protein 7.0 Albumin 3.0 L Urine Color Yellow Urine Appearance Slcloudy Urine pH 5.0 D Ur Specific [place] 1.024 Urine Protein Negative Urine Glucose (UA) Negative Urine Ketones Negative Urine Blood Negative Urine Nitrite Negative Urine Bilirubin Negative Urine Urobilinogen Negative Ur Leukocyte Esterase Negative RPR Titer 04/01/17 07:40 WBC RBC Hgb Hct MCV MCH MCHC RDW Plt Count MPV Sodium Potassium Chloride Carbon Dioxide Anion Gap BUN Creatinine Creat Clearance w eGFR Random Glucose Calcium Total Bilirubin AST ALT Alkaline Phosphatase Total Protein Albumin Urine Color Urine Appearance Urine pH Ur Specific [place] Urine Protein Urine Glucose (UA) Urine Ketones Urine Blood Urine Nitrite Urine Bilirubin Urine Urobilinogen Ur Leukocyte Esterase RPR Titer Nonreactive LABS NOTED. - Treatment Hospital Course: Detox Protocol Followed, Detoxed Safely, Responded well, Discharged Condition Good, Rehab Referral Accepted Patient has Accepted a [facility] ([place], [place] . - Medication Discharge Medications: Ambulatory Orders Albuterol Sulfate Inhaler - [Ventolin Hfa Inhaler -] 2 inh PO Q4H PRN 12/19/16 Atazanavir [Reyataz -] 300 mg PO HS 12/19/16 Budesonide/Formeterol Fumarate [SYMBICORT 80/4.5mcg -] 1 inh PO BID 12/19/16 Emtricitabine/Tenofovir [Truvada] 1 tab PO HS 12/19/16 Ritonavir [Norvir -] 100 mg PO HS 12/19/16 - Diagnosis (1) Dehydration Current Visit: Yes Status: Acute (2) Laceration of left hand with foreign body Current Visit: Yes Status: Acute Qualifiers: Encounter type: initial encounter Qualified Code(s): S61.422A - Laceration with foreign body of left hand, initial encounter (3) Nicotine dependence Current Visit: Yes Status: Acute Qualifiers: Nicotine product type: cigarettes Substance use status: uncomplicated Qualified Code(s): F17.210 - Nicotine dependence, cigarettes, uncomplicated (4) Opioid dependence with withdrawal Current Visit: Yes Status: Acute (5) Weight loss Current Visit: Yes Status: Acute (6) HIV (human immunodeficiency virus infection) Current Visit: Yes Status: Chronic (7) Hypertension Current Visit: Yes Status: Chronic Qualifiers: Hypertension type: essential hypertension Qualified Code(s): I10 - Essential (primary) hypertension (8) IVDU (intravenous drug user) Current Visit: Yes Status: Chronic (9) Psychiatric disorder Current Visit: Yes Status: Chronic (10) Cannabis dependence, uncomplicated Current Visit: Yes Status: Acute (11) COPD (chronic obstructive pulmonary disease) Current Visit: Yes Status: Chronic Qualifiers: COPD type: unspecified COPD Qualified Code(s): J44.9 - Chronic obstructive pulmonary disease, unspecified (12) Substance induced mood disorder Current Visit: Yes Status: Acute (13) Cocaine dependence, uncomplicated Current Visit: Yes Status: Acute - AMA Did Patient Leave Against Medical Advice: No
[2017-04-05 13:35] VITALS: BP 107/70; PULSE 92; TEMP 97
== END 2017-04-05 13:15 | disposition other institution (70) | DRG 773 ==
LOC: YASAS 12:09 → Y3N 17:13
PROVIDERS: ADMIT Internal Medicine; ATTEND Internal Medicine
PROC: HZ2ZZZZ Detoxification Services for Substance Abuse Treatment (ICD-10-PCS; principal; 2017-03-31)
DX: F11.23 Opioid dependence with withdrawal (principal); F14.20 Cocaine dependence, uncomplicated; F12.20 Cannabis dependence, uncomplicated; F17.210 Nicotine dependence, cigarettes, uncomplicated; F19.24 Other psychoactive substance dependence with psychoactive substance-induced mood disorder; F99 Mental disorder, not otherwise specified; I10 Essential (primary) hypertension; Z21 Asymptomatic human immunodeficiency virus [HIV] infection status; E86.0 Dehydration; J44.9 Chronic obstructive pulmonary disease, unspecified; Z87.898 Personal history of other specified conditions; Z48.02 Encounter for removal of sutures; S61.422D Laceration with foreign body of left hand, subsequent encounter; X58.XXXD Exposure to other specified factors, subsequent encounter
CPT/HCPCS: 36415; 80053; 81003; 85027; 86593; 93005; 93010

== ENCOUNTER 2017-04-05 13:03 | Inpatient (IN) | payer OTHER ==
--- NOTE | 2017-04-05 12:40 | HP ---
[facility] Rehab Assess/Revision - Admission History Admitted to Rehab from: [facility] Date of Admission to Rehab: 04/05/2017. - Vital signs Vital Signs: NOTED; STABLE. - Findings Detox History & Physical reviewed: Yes Concur with findings: Yes Comments/Additional Findings: PATIENT'S MEDICAL / MEDICATION HISTORY REVIEWED PRIOR TO DISCHARGE FROM DETOX UNIT. PATIENT WAS DISCHARGED FROM DETOX UNIT TO BE TAKEN TO REHAB UNIT IN STABLE MEDICAL CONDITION. Inpatient Rehab Admission - Initial Determination Are CD services needed?: Yes Free of communicable disease: Yes Not in need of hospitalization: Yes - Rehab Admission Criteria Previous failed treatment: Yes Comorbidities: Yes Patient is meeting Inpatient Rehab admission criteria:: Yes
[~2017-04-05 13:03] MED LIST: ACETAMINOPHEN 325 MG TABLET (FP) PO PRN; ALBUTEROL SO4 18 GM HFA INHALER IH PRN; IBUPROFEN 400 MG TABLET (FP) PO PRN; LOPERAMIDE HCL 2 MG CAPSULE PO PRN; MAGNESIUM CITRATE 300 ML BOTTLE PO PRN; MAGNESIUM HYDROX 2400MG/30ML ORAL SUSPENSION 30 ML CUP PO PRN; MENTHOL/PHENOL 1 EACH UD MM PRN; NICOTINE POLACRILEX 2 MG GUM BUC PRN; P-EPHED 60MG/TRIPROLIDI 2.5MG TABLET PO PRN; guaiFENesin/D-METHORPHAN HB 10 ML UNIT-DOSE CUPS PO PRN
[2017-04-05] MEDS: MAG HYDROX/AL HYDROX/SIMETH 30 ML UNIT-DOSE CUP PO PRN (13:21)
--- NOTE | 2017-04-05 15:22 | PN ---
[facility] Progress Note Note: Patient c/o abdominal pain that is constant on LLQ and the umbilical are with hernia present and rash, unable to sit still.. Patient reports pain started earlier after eating , has no difficulty moving his bowel, took Milk of Mylanta without any relief. Patient is AO x 3 self directing, mild distress, unable to sit still and guarding Heart: Normal RR Lungs clear B/L no adventitious breath sounds Abdominal BS x 4, umbilical hernia, + LLQ rebound tenderness Patient sent to [facility] for further evaluation Unable to speak to receiving MD at [facility], as per Ganesh Sadler, are currently attending an emergency
[2017-04-05] MEDS: BUDESONIDE/FORMETEROL FUMARATE 80/4.5 mcg INHALER IH SCH (22:35)
[2017-04-05] MEDS: BACITRACIN 0.9 GM PACKET TP SCH (22:35)
[2017-04-05] MEDS: THIAMINE HCL 100 MG TABLET (FP) PO SCH (22:36)
[2017-04-05] MEDS: EMTRICITABINE 200MG/TENOFOVIR 300MG PO SCH (22:55)
[2017-04-05] MEDS: ATAZANAVIR SO4 300 MG CAPSULE PO SCH (22:55)
[2017-04-05] MEDS: RITONAVIR 100 MG TABLET PO SCH (22:55)
[2017-04-06] MEDS ORDERED: diphenhydrAMINE HCL 50 MG CAPSULE PO ONE (00:56)
[2017-04-06] MEDS: DOCUSATE SODIUM 100 MG CAPSULE (FP) PO SCH ×3 (06:28→21:00)
[2017-04-06] MEDS: BACITRACIN 0.9 GM PACKET TP SCH ×2 (10:32→21:01)
[2017-04-06] MEDS: BUDESONIDE/FORMETEROL FUMARATE 80/4.5 mcg INHALER IH SCH ×2 (10:32→21:02)
[2017-04-06] MEDS: NICOTINE 14 MG/24 HOURS TOPICAL PATCH TD SCH (10:32)
[2017-04-06] MEDS: PRENATAL VITAMINS W/ FOLIC ACID TABLET (FP) PO SCH (10:32)
--- NOTE | 2017-04-06 12:48 | PN ---
[facility] Progress Note (SOAP) Subjective: c/o protracted opioid withdrawal sx - body aches, insomani, anxiety, fatigue and depression refusing MAT offered wants symptomatic treatmenett Objective: 04/06/17 12:47 Vital Signs - 24 hr 04/05/17 04/05/17 04/06/17 14:30 22:09 03:30 Temperature 97.2 F L 98.9 F Pulse Rate 98 H 97 H Respiratory 18 18 18 Rate Blood Pressure 113/81 119/82 04/06/17 07:09 Temperature 97.7 F Pulse Rate 94 H Respiratory 18 Rate Blood Pressure 120/74 labs freviewed. Assessment: 04/06/17 12:48 protractd opioid withdrawal, malnutirtion 2/2 substances use, symptomatic relief ordered
[2017-04-06] MEDS ORDERED: ONDANSETRON *ODT* 4 MG TABLET SL ONE (12:49)
[2017-04-06] MEDS ORDERED: ONDANSETRON *ODT* 4 MG TABLET SL PRN (12:49)
[2017-04-06] MEDS: CYCLOBENZAPRINE HCL 10 MG TABLET (FP) PO SCH ×2 (13:18→21:01)
[2017-04-06] MEDS: NAPROXEN 500 MG TABLET (FP) PO SCH ×2 (13:18→21:00)
[2017-04-06] MEDS: GABAPENTIN 100 MG CAPSULE (FP) PO SCH ×2 (13:18→21:01)
[2017-04-06] MEDS: PANTOPRAZOLE 40 MG TABLET (FP) PO SCH (13:18)
[2017-04-06] MEDS: LIDOCAINE 5% TOPICAL PATCH TP SCH (13:19)
[2017-04-06] MEDS: cloNIDine HCL 0.1 MG TABLET PO SCH ×2 (13:21→21:01)
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
[2017-04-06] MEDS: MAG HYDROX/AL HYDROX/SIMETH 30 ML UNIT-DOSE CUP PO PRN (19:46)
[2017-04-06] MEDS: AMITRIPTYLINE HCL 25 MG TABLET (FP) PO SCH (21:00)
[2017-04-06] MEDS: ATAZANAVIR SO4 300 MG CAPSULE PO SCH (21:01)
[2017-04-06] MEDS: THIAMINE HCL 100 MG TABLET (FP) PO SCH (21:01)
[2017-04-06] MEDS: EMTRICITABINE 200MG/TENOFOVIR 300MG PO SCH (21:02)
[2017-04-06] MEDS: LIDOCAINE PATCH REMOVAL MC SCH (21:03)
[2017-04-06] MEDS: RITONAVIR 100 MG TABLET PO SCH (21:03)
[2017-04-07] MEDS: hydrOXYzine PAMOATE 50 MG CAPSULE (FP) PO PRN (00:55)
[2017-04-07] MEDS: DOCUSATE SODIUM 100 MG CAPSULE (FP) PO SCH ×3 (06:25→21:50)
[2017-04-07] MEDS: CYCLOBENZAPRINE HCL 10 MG TABLET (FP) PO SCH ×3 (06:25→21:50)
[2017-04-07] MEDS: GABAPENTIN 100 MG CAPSULE (FP) PO SCH ×3 (06:25→21:49)
[2017-04-07] MEDS: PANTOPRAZOLE 40 MG TABLET (FP) PO SCH (10:35)
[2017-04-07] MEDS: cloNIDine HCL 0.1 MG TABLET PO SCH ×2 (10:35→21:49)
[2017-04-07] MEDS: BACITRACIN 0.9 GM PACKET TP SCH ×2 (10:35→21:49)
[2017-04-07] MEDS: NAPROXEN 500 MG TABLET (FP) PO SCH ×2 (10:35→21:49)
[2017-04-07] MEDS: NICOTINE 14 MG/24 HOURS TOPICAL PATCH TD SCH (10:36)
[2017-04-07] MEDS: PRENATAL VITAMINS W/ FOLIC ACID TABLET (FP) PO SCH (10:37)
[2017-04-07] MEDS: LIDOCAINE 5% TOPICAL PATCH TP SCH (10:37)
[2017-04-07] MEDS: BUDESONIDE/FORMETEROL FUMARATE 80/4.5 mcg INHALER IH SCH ×2 (10:37→21:50)
--- NOTE | 2017-04-07 11:25 | PN ---
Psychiatric Progress Note Vital Signs: Vital Signs Period Temp Pulse Resp BP Sys/Haas Pulse Ox Last 24 Hr 97.6 F 92-98 16-16 109-123/70-76 Date of Session: 04/07/17 Chief Complaint:: "insomnia" HPI: Patient is addressing cocaine, opioid, nicotine dependence comorbid Bipolar I disorder. ROS: HIV+, COPD, HTN, Hep C medically managed Current Medications: Active Medications Generic Name Dose Route Start Last Admin Trade Name Freq PRN Reason Stop Dose Admin Acetaminophen 650 mg 04/05/17 12:41 Tylenol - PO Q4H PRN FEVER Al Hydroxide/Mg Hydroxide 30 ml 04/05/17 12:41 04/06/17 19:46 Mylanta Oral Suspension - PO 30 ml Q6H PRN Administration DYSPEPSIA Albuterol Sulfate 2 puff 04/05/17 12:44 Ventolin Hfa Inhaler - IH Q4H PRN ASTHMA Amitriptyline HCl 50 mg 04/06/17 22:00 04/06/17 21:00 Elavil - PO 50 mg HS DANIEL Administration Atazanavir 300 mg 04/05/17 22:00 04/06/17 21:01 Reyataz - PO 300 mg HS DANIEL Administration Bacitracin 0.9 gm 04/05/17 22:00 04/07/17 10:35 Bacitracin - TP 0.9 gm BID DANIEL Administration Budesonide/Formoterol Fumarate 1 puff 04/05/17 22:00 04/07/17 10:37 Symbicort 80/4.5mcg - IH Not Given BID DANIEL Clonidine 0.1 mg 04/06/17 13:00 04/07/17 10:35 Catapres - PO 0.1 mg BID DANIEL Administration Cyclobenzaprine HCl 10 mg 04/06/17 14:00 04/07/17 06:25 Flexeril - PO 10 mg TID DANIEL Administration Docusate Sodium 100 mg 04/06/17 06:00 04/07/17 06:25 Colace - PO 100 mg TID DANIEL Administration Emtricitabine/Tenofovir 1 tab 04/05/17 22:00 04/06/17 21:02 Truvada PO 1 tab HS DANIEL Administration Eucalyptus/Menthol/Phenol/Sorbitol 1 each 04/05/17 12:41 Cepastat Lozenge - MM Q4H PRN SORE THROAT Gabapentin 100 mg 04/06/17 14:00 04/07/17 06:25 Neurontin - PO 100 mg TID DANIEL Administration Guaifenesin 10 ml 04/05/17 12:41 Robitussin Dm - PO Q6H PRN COUGH Hydroxyzine Pamoate 50 mg 04/07/17 00:43 04/07/17 00:55 Vistaril - PO 50 mg Q6H PRN Administration FOR ITCHING Lidocaine 1 patch 04/06/17 13:00 04/07/17 10:37 Lidoderm Patch - TP 1 patch DAILY DANIEL Administration Loperamide HCl 4 mg 04/05/17 12:41 Imodium - PO Q6H PRN DIARRHEA Magnesium Citrate 300 ml 04/05/17 12:41 04/05/17 22:35 Citroma - PO 300 ml Q48H PRN Administration CONSTIPATION Magnesium Hydroxide 30 ml 04/05/17 12:41 Milk Of Magnesia - PO DAILY PRN CONSTIPATION Miscellaneous 1 each 04/06/17 22:00 04/06/17 21:03 Lidoderm Patch Removal MC 1 each DAILY@2200 [facility] Administration Naproxen 500 mg 04/06/17 13:00 04/07/17 10:35 Naprosyn - PO 500 mg BID DANIEL Administration Nicotine 14 mg 04/06/17 10:00 04/07/17 10:36 Nicoderm Patch - TD Not Given DAILY [facility] Nicotine Polacrilex 2 mg 04/05/17 12:41 Nicorette Gum - BUC Q2H PRN NICOTINE REPLACEMENT RX Ondansetron HCl 8 mg 04/06/17 12:49 Zofran Odt - SL Q6H PRN NAUSEA AND/OR VOMITING Pantoprazole Sodium 40 mg 04/06/17 13:00 04/07/17 10:35 Protonix - PO 40 mg DAILY [facility] Administration Multivit/Folic Acid/Iron 1 tab 04/06/17 10:00 04/07/17 10:37 Vitamins (Sjr) - PO 1 tab DAILY [facility] Administration Pseudoephedrine/Triprolidine 1 combo 04/05/17 12:41 Actifed - PO TID PRN NASAL CONGESTION Ritonavir 100 mg 04/05/17 22:00 04/06/17 21:03 Norvir - PO 100 mg HS DANIEL Administration Thiamine HCl 100 mg 04/05/17 22:00 04/06/17 21:01 Vitamin B1 - PO 100 mg HS DANIEL Administration Current Side Effect: No Lab tests ordered: No Lab tests reviewed: Yes Provider note:: Patient reports he was not able to sleep all night, today it was also reported by the medical staff that patient was up almost all night, discussed with the patient indications and properties of Seroquel,Wellbutrin and Celexa(orders for medications was not placed on 04/06/17 patient requested to start medications today) sleep hygiene discussed with the patient will start all medication today, monitor progress. Total face to face time:: 15 Mental Status Exam - Mental Status Exam Alert and Oriented to: Time, Place, Person Cognitive Function: Good Patient Appearance: Well Groomed Mood: Sad, Anxious Affect: Appropriate, Mood Congruent Patient Behavior: Appropriate, Cooperative Speech Pattern: Clear, Appropriate Voice Loudness: Normal Thought Process: Intact, Goal Oriented Thought Disorder: Not Present Hallucinations: Denies Suicidal Ideation: Denies Homicidal Ideation: Denies Insight/Judgement: Fair Sleep: Poorly, Difficulty falling asleep Appetite: Fair Muscle strength/Tone: Normal Gait/Station: Normal Psychiatric Treatment Plan - Problem List (1) Bipolar 1 disorder, depressed Current Visit: Yes (2) Cocaine dependence Current Visit: Yes (3) Opioid dependence Current Visit: Yes (4) Nicotine dependence Current Visit: No Qualifiers:
[2017-04-07] MEDS: ATAZANAVIR SO4 300 MG CAPSULE PO SCH (21:49)
[2017-04-07] MEDS: AMITRIPTYLINE HCL 25 MG TABLET (FP) PO SCH (21:49)
[2017-04-07] MEDS: THIAMINE HCL 100 MG TABLET (FP) PO SCH (21:49)
[2017-04-07] MEDS: LIDOCAINE PATCH REMOVAL MC SCH (21:50)
[2017-04-07] MEDS: QUEtiapine FUMARATE 25 MG TABLET (FP) PO SCH (21:50)
[2017-04-07] MEDS: EMTRICITABINE 200MG/TENOFOVIR 300MG PO SCH (21:52)
[2017-04-07] MEDS: RITONAVIR 100 MG TABLET PO SCH (21:52)
[2017-04-08] MEDS: hydrOXYzine PAMOATE 50 MG CAPSULE (FP) PO PRN ×2 (00:38→04:01)
[2017-04-08] MEDS: GABAPENTIN 100 MG CAPSULE (FP) PO SCH ×3 (06:22→21:44)
[2017-04-08] MEDS: CYCLOBENZAPRINE HCL 10 MG TABLET (FP) PO SCH ×3 (06:22→21:44)
[2017-04-08] MEDS: DOCUSATE SODIUM 100 MG CAPSULE (FP) PO SCH ×3 (06:22→21:44)
[2017-04-08] MEDS: BACITRACIN 0.9 GM PACKET TP SCH ×2 (10:36→21:43)
[2017-04-08] MEDS: LIDOCAINE 5% TOPICAL PATCH TP SCH (10:37)
[2017-04-08] MEDS: CITALOPRAM HYDROBROMIDE 20 MG TABLET (FP) PO SCH (10:37)
[2017-04-08] MEDS: NAPROXEN 500 MG TABLET (FP) PO SCH ×2 (10:37→21:44)
[2017-04-08] MEDS: PRENATAL VITAMINS W/ FOLIC ACID TABLET (FP) PO SCH (10:37)
[2017-04-08] MEDS: NICOTINE 14 MG/24 HOURS TOPICAL PATCH TD SCH (10:37)
[2017-04-08] MEDS: BUDESONIDE/FORMETEROL FUMARATE 80/4.5 mcg INHALER IH SCH ×2 (10:38→21:44)
[2017-04-08] MEDS: PANTOPRAZOLE 40 MG TABLET (FP) PO SCH (10:38)
[2017-04-08] MEDS: cloNIDine HCL 0.1 MG TABLET PO SCH ×2 (10:40→21:44)
[2017-04-08] MEDS: ATAZANAVIR SO4 300 MG CAPSULE PO SCH (21:44)
[2017-04-08] MEDS: QUEtiapine FUMARATE 25 MG TABLET (FP) PO SCH (21:44)
[2017-04-08] MEDS: EMTRICITABINE 200MG/TENOFOVIR 300MG PO SCH (21:45)
[2017-04-08] MEDS: RITONAVIR 100 MG TABLET PO SCH (21:45)
[2017-04-08] MEDS: LIDOCAINE PATCH REMOVAL MC SCH (21:45)
[2017-04-08] MEDS: AMITRIPTYLINE HCL 25 MG TABLET (FP) PO SCH (21:45)
[2017-04-08] MEDS: THIAMINE HCL 100 MG TABLET (FP) PO SCH (21:45)
[2017-04-09] MEDS: DOCUSATE SODIUM 100 MG CAPSULE (FP) PO SCH ×3 (06:57→21:40)
[2017-04-09] MEDS: CYCLOBENZAPRINE HCL 10 MG TABLET (FP) PO SCH ×3 (06:57→21:39)
[2017-04-09] MEDS: GABAPENTIN 100 MG CAPSULE (FP) PO SCH ×3 (06:57→21:40)
[2017-04-09] MEDS: NAPROXEN 500 MG TABLET (FP) PO SCH ×2 (10:46→21:40)
[2017-04-09] MEDS: BACITRACIN 0.9 GM PACKET TP SCH ×2 (10:46→21:39)
[2017-04-09] MEDS: PANTOPRAZOLE 40 MG TABLET (FP) PO SCH (10:46)
[2017-04-09] MEDS: LIDOCAINE 5% TOPICAL PATCH TP SCH (10:46)
[2017-04-09] MEDS: CITALOPRAM HYDROBROMIDE 20 MG TABLET (FP) PO SCH (10:46)
[2017-04-09] MEDS: cloNIDine HCL 0.1 MG TABLET PO SCH ×2 (10:46→21:39)
[2017-04-09] MEDS: NICOTINE 14 MG/24 HOURS TOPICAL PATCH TD SCH (10:46)
[2017-04-09] MEDS: PRENATAL VITAMINS W/ FOLIC ACID TABLET (FP) PO SCH (10:47)
[2017-04-09] MEDS: BUDESONIDE/FORMETEROL FUMARATE 80/4.5 mcg INHALER IH SCH ×2 (10:48→21:39)
[2017-04-09] MEDS: ATAZANAVIR SO4 300 MG CAPSULE PO SCH (21:39)
[2017-04-09] MEDS: RITONAVIR 100 MG TABLET PO SCH (21:39)
[2017-04-09] MEDS: QUEtiapine FUMARATE 25 MG TABLET (FP) PO SCH (21:39)
[2017-04-09] MEDS: THIAMINE HCL 100 MG TABLET (FP) PO SCH (21:39)
[2017-04-09] MEDS: EMTRICITABINE 200MG/TENOFOVIR 300MG PO SCH (21:39)
[2017-04-09] MEDS: AMITRIPTYLINE HCL 25 MG TABLET (FP) PO SCH (21:40)
[2017-04-09] MEDS: LIDOCAINE PATCH REMOVAL MC SCH (21:40)
[2017-04-10] MEDS: hydrOXYzine PAMOATE 50 MG CAPSULE (FP) PO PRN ×2 (00:03→06:50)
[2017-04-10] MEDS: DOCUSATE SODIUM 100 MG CAPSULE (FP) PO SCH ×3 (06:33→21:42)
[2017-04-10] MEDS: GABAPENTIN 100 MG CAPSULE (FP) PO SCH ×3 (06:33→21:41)
[2017-04-10] MEDS: CYCLOBENZAPRINE HCL 10 MG TABLET (FP) PO SCH ×3 (06:33→21:42)
[2017-04-10] MEDS: LIDOCAINE 5% TOPICAL PATCH TP SCH (10:45)
[2017-04-10] MEDS: BACITRACIN 0.9 GM PACKET TP SCH ×2 (10:45→21:42)
[2017-04-10] MEDS: NAPROXEN 500 MG TABLET (FP) PO SCH ×2 (10:45→21:42)
[2017-04-10] MEDS: PANTOPRAZOLE 40 MG TABLET (FP) PO SCH (10:45)
[2017-04-10] MEDS: NICOTINE 14 MG/24 HOURS TOPICAL PATCH TD SCH (10:45)
[2017-04-10] MEDS: PRENATAL VITAMINS W/ FOLIC ACID TABLET (FP) PO SCH (10:45)
[2017-04-10] MEDS: BUDESONIDE/FORMETEROL FUMARATE 80/4.5 mcg INHALER IH SCH ×2 (10:45→21:42)
[2017-04-10] MEDS: cloNIDine HCL 0.1 MG TABLET PO SCH ×2 (10:45→21:42)
[2017-04-10] MEDS: CITALOPRAM HYDROBROMIDE 20 MG TABLET (FP) PO SCH (10:45)
--- NOTE | 2017-04-10 15:35 | PN ---
Psychiatric Progress Note Vital Signs: Vital Signs Period Temp Pulse Resp BP Sys/Haas Pulse Ox Last 24 Hr 97.8 F 88-100 -18 111-115/76-77 Date of Session: 04/10/17 Chief Complaint:: Insomnia HPI: Patient is addressing cocaine, opioid, nicotine dependence comorbid Bipolar I disorder. ROS: HIV+, COPD, HTN, Hep C medically managed Current Medications: Active Medications Generic Name Dose Route Start Last Admin Trade Name Freq PRN Reason Stop Dose Admin Acetaminophen 650 mg 04/05/17 12:41 04/08/17 01:48 Tylenol - PO 650 mg Q4H PRN Administration FEVER Al Hydroxide/Mg Hydroxide 30 ml 04/05/17 12:41 04/06/17 19:46 Mylanta Oral Suspension - PO 30 ml Q6H PRN Administration DYSPEPSIA Albuterol Sulfate 2 puff 04/05/17 12:44 Ventolin Hfa Inhaler - IH Q4H PRN ASTHMA Amitriptyline HCl 50 mg 04/06/17 22:00 04/09/17 21:40 Elavil - PO Not Given HS DANIEL Atazanavir 300 mg 04/05/17 22:00 04/09/17 21:39 Reyataz - PO 300 mg HS DANIEL Administration Bacitracin 0.9 gm 04/05/17 22:00 04/10/17 10:45 Bacitracin - TP 0.9 gm BID DANIEL Administration Budesonide/Formoterol Fumarate 1 puff 04/05/17 22:00 04/10/17 10:45 Symbicort 80/4.5mcg - IH 1 puff BID DANIEL Administration Bupropion HCl 150 mg 04/08/17 10:00 04/10/17 10:46 Wellbutrin Xl - PO 150 mg DAILY DANIEL Administration Citalopram Hydrobromide 20 mg 04/08/17 10:00 04/10/17 10:45 Celexa - PO 20 mg DAILY DANIEL Administration Clonidine 0.1 mg 04/06/17 13:00 04/10/17 10:45 Catapres - PO 0.1 mg BID DANIEL Administration Cyclobenzaprine HCl 10 mg 04/06/17 14:00 04/10/17 14:37 Flexeril - PO 10 mg TID DANIEL Administration Docusate Sodium 100 mg 04/06/17 06:00 04/10/17 14:37 Colace - PO 100 mg TID [facility] Administration Emtricitabine/Tenofovir 1 tab 04/05/17 22:00 04/09/17 21:39 Truvada PO 1 tab HS [facility] Administration Eucalyptus/Menthol/Phenol/Sorbitol 1 each 04/05/17 12:41 Cepastat Lozenge - MM Q4H PRN SORE THROAT Gabapentin 100 mg 04/06/17 14:00 04/10/17 14:37 Neurontin - PO 100 mg TID [facility] Administration Guaifenesin 10 ml 04/05/17 12:41 Robitussin Dm - PO Q6H PRN COUGH Hydroxyzine Pamoate 50 mg 04/07/17 00:43 04/10/17 06:50 Vistaril - PO 50 mg Q6H PRN Administration FOR ITCHING Lidocaine 1 patch 04/06/17 13:00 04/10/17 10:45 Lidoderm Patch - TP 1 patch DAILY [facility] Administration Loperamide HCl 4 mg 04/05/17 12:41 Imodium - PO Q6H PRN DIARRHEA Magnesium Citrate 300 ml 04/05/17 12:41 04/05/17 22:35 Citroma - PO 300 ml Q48H PRN Administration CONSTIPATION Magnesium Hydroxide 30 ml 04/05/17 12:41 Milk Of Magnesia - PO DAILY PRN CONSTIPATION Miscellaneous 1 each 04/06/17 22:00 04/09/17 21:40 Lidoderm Patch Removal MC Not Given DAILY@2200 [facility] Naproxen 500 mg 04/06/17 13:00 04/10/17 10:45 Naprosyn - PO 500 mg BID [facility] Administration Nicotine 14 mg 04/06/17 10:00 04/10/17 10:45 Nicoderm Patch - TD Not Given DAILY [facility] Nicotine Polacrilex 2 mg 04/05/17 12:41 Nicorette Gum - BUC Q2H PRN NICOTINE REPLACEMENT RX Ondansetron HCl 8 mg 04/06/17 12:49 Zofran Odt - SL Q6H PRN NAUSEA AND/OR VOMITING Pantoprazole Sodium 40 mg 04/06/17 13:00 04/10/17 10:45 Protonix - PO 40 mg DAILY DANIEL Administration Multivit/Folic Acid/Iron 1 tab 04/06/17 10:00 04/10/17 10:45 Vitamins (Sjr) - PO 1 tab DAILY DANIEL Administration Pseudoephedrine/Triprolidine 1 combo 04/05/17 12:41 Actifed - PO TID PRN NASAL CONGESTION Quetiapine Fumarate 75 mg 04/10/17 15:34 Seroquel - PO HS DANIEL Ritonavir 100 mg 04/05/17 22:00 04/09/17 21:39 Norvir - PO 100 mg HS DANIEL Administration Thiamine HCl 100 mg 04/05/17 22:00 04/09/17 21:39 Vitamin B1 - PO 100 mg HS DANIEL Administration Medication(s) Change(s): increase Seroquel 75 mg po hs Current Side Effect: No Lab tests ordered: No Lab tests reviewed: Yes Provider note:: Patient was seen today, he continues to c/o insomnia, irritability and mood swings, medications well tolerated, no side-effects reported, will increase Seroquel 75 mg , conitnue to monitor progress. Total face to face time:: 15 Mental Status Exam - Mental Status Exam Alert and Oriented to: Time, Place, Person Cognitive Function: Grossly Intact Patient Appearance: Well Groomed Mood: Sad, Anxious, Irritable Affect: Appropriate, Mood Congruent Patient Behavior: Appropriate, Cooperative Speech Pattern: Appropriate Voice Loudness: Normal Thought Process: Goal Oriented Thought Disorder: Not Present Hallucinations: Denies Suicidal Ideation: Denies Homicidal Ideation: Denies Insight/Judgement: Fair Sleep: Poorly, Difficulty falling asleep Appetite: Fair Muscle strength/Tone: Normal Psychiatric Treatment Plan - Problem List (4) Nicotine dependence Qualifiers:
--- NOTE | 2017-04-10 16:41 | PN ---
S Progress Note Note: Patient reports difficulty sleeping, medications review. Patient to follow up with Psych.
[2017-04-10] MEDS: LIDOCAINE PATCH REMOVAL MC SCH (21:41)
[2017-04-10] MEDS: RITONAVIR 100 MG TABLET PO SCH (21:41)
[2017-04-10] MEDS: ATAZANAVIR SO4 300 MG CAPSULE PO SCH (21:41)
[2017-04-10] MEDS: THIAMINE HCL 100 MG TABLET (FP) PO SCH (21:42)
[2017-04-10] MEDS: AMITRIPTYLINE HCL 25 MG TABLET (FP) PO SCH (21:42)
[2017-04-10] MEDS: EMTRICITABINE 200MG/TENOFOVIR 300MG PO SCH (21:42)
[2017-04-10] MEDS ORDERED: QUEtiapine FUMARATE 25 MG TABLET (FP) PO SCH (22:00)
[2017-04-11] MEDS: GABAPENTIN 100 MG CAPSULE (FP) PO SCH (06:11)
[2017-04-11] MEDS: DOCUSATE SODIUM 100 MG CAPSULE (FP) PO SCH (06:11)
[2017-04-11] MEDS: CYCLOBENZAPRINE HCL 10 MG TABLET (FP) PO SCH (06:11)
[2017-04-11 07:01] VITALS: BP 107/81; PULSE 79; TEMP 98.3
[2017-04-11] MEDS: BACITRACIN 0.9 GM PACKET TP SCH (10:34)
[2017-04-11] MEDS: CITALOPRAM HYDROBROMIDE 20 MG TABLET (FP) PO SCH (10:35)
[2017-04-11] MEDS: cloNIDine HCL 0.1 MG TABLET PO SCH (10:35)
[2017-04-11] MEDS: LIDOCAINE 5% TOPICAL PATCH TP SCH (10:36)
[2017-04-11] MEDS: PANTOPRAZOLE 40 MG TABLET (FP) PO SCH (10:37)
[2017-04-11] MEDS: NICOTINE 14 MG/24 HOURS TOPICAL PATCH TD SCH (10:37)
[2017-04-11] MEDS: NAPROXEN 500 MG TABLET (FP) PO SCH (10:37)
[2017-04-11] MEDS: PRENATAL VITAMINS W/ FOLIC ACID TABLET (FP) PO SCH (10:37)
[2017-04-11] MEDS: BUDESONIDE/FORMETEROL FUMARATE 80/4.5 mcg INHALER IH SCH (10:38)
--- NOTE | 2017-04-11 11:14 | PN ---
Psychiatric Progress Note Vital Signs: Vital Signs Period Temp Pulse Resp BP Sys/Haas Pulse Ox Last 24 Hr 98.3 F 79-104 18-18 107-116/70-81 Date of Session: 04/11/17 Chief Complaint:: discharge visit HPI: Patient is addressing cocaine, opioid, nicotine dependence comorbid Bipolar I disorder. ROS: HIV+, COPD, HTN, Hep C medically managed Current Side Effect: No Lab tests ordered: No Lab tests reviewed: Yes Provider note:: patient has completed today treatment and met identified goals, will continue to address his issues at [facility] inpatient rehabilitation program. Patient gained insights into importance of changing attitudes, was encouraged to utilze all supports available to prevent relapses. Medications well tolerated , reports he feels much better, his sleep habits improved and anxiety decreased. Scripts provided for 30 days, patient is stable for discharge today. Total face to face time:: 30 Mental Status Exam - Mental Status Exam Alert and Oriented to: Time, Place, Person Cognitive Function: Good Patient Appearance: Well Groomed Mood: Hopeful Affect: Appropriate, Mood Congruent Patient Behavior: Appropriate, Cooperative Speech Pattern: Clear, Appropriate Voice Loudness: Normal Thought Process: Intact Thought Disorder: Not Present Hallucinations: Denies Suicidal Ideation: Denies Homicidal Ideation: Denies Insight/Judgement: Fair Sleep: Fair Appetite: Fair Muscle strength/Tone: Normal Gait/Station: Normal Psychiatric Treatment Plan - Problem List (4) Nicotine dependence Qualifiers:
== END 2017-04-11 08:55 | disposition home or self-care (01) | DRG 772 ==
LOC: YASAS 13:03 → Y5N 13:04
PROVIDERS: ADMIT Psychiatry & Neurology Psychiatry; ATTEND Psychiatry & Neurology Psychiatry
PROC: HZ42ZZZ Group Counseling for Substance Abuse Treatment, Cognitive-Behavioral (ICD-10-PCS; principal; 2017-04-05)
DX: F11.20 Opioid dependence, uncomplicated (principal); F14.20 Cocaine dependence, uncomplicated; F17.210 Nicotine dependence, cigarettes, uncomplicated; F31.9 Bipolar disorder, unspecified; I10 Essential (primary) hypertension; Z21 Asymptomatic human immunodeficiency virus [HIV] infection status; J44.9 Chronic obstructive pulmonary disease, unspecified; B18.2 Chronic viral hepatitis C; L03.90 Cellulitis, unspecified; G47.00 Insomnia, unspecified; K42.9 Umbilical hernia without obstruction or gangrene; R10.32 Left lower quadrant pain
CPT/HCPCS: J0735

== ENCOUNTER 2017-04-05 16:34 | Emergency (ER) | payer OTHER ==
[2017-04-05 17:02] VITALS: BMI 24.2
--- NOTE | 2017-04-05 17:09 | PDOC ---
History of Present Illness - General Chief Complaint: Pain, Acute Stated Complaint: HERNIA Time Seen by Provider: 04/05/17 16:59 - History of Present Illness Initial Comments: 04/05/17 17:09 The patient is a 61 year old male, with a significant past medical history of heroin and cocaine abuse, copd, hiv+ (since 1989), and bipolar disorder, presents with abdominal pain for the past day since he ate lunch. \He is know to have an abdominal hernia for which he was seen in this ER 2 other times (last was 12/19/17) and that was never treated surgically. His hernia is reducible and only occasionally bothersome., Patient states he just finish his detox for heroin at [facility] and is about to start rehab there. 04/05/17 18:48 04/05/17 18:59 Past History - Past Medical History Allergies/Adverse Reactions: Allergies Allergy/AdvReac Type Severity Reaction Status Date / Time No Known Allergies Allergy Verified 03/31/17 17:00 Home Medications: Ambulatory Orders Albuterol Sulfate Inhaler - [Ventolin Hfa Inhaler -] 2 inh PO Q4H PRN 12/19/16 Atazanavir [Reyataz -] 300 mg PO HS 12/19/16 Budesonide/Formeterol Fumarate [SYMBICORT 80/4.5mcg -] 1 inh PO BID 12/19/16 Emtricitabine/Tenofovir [Truvada] 1 tab PO HS 12/19/16 Ritonavir [Norvir -] 100 mg PO HS 12/19/16 Lactulose (Oral Use) [Cephulac -] 20 gm PO TID #1 bottle 04/05/17 Anemia: No Asthma: No Cancer: No Cardiac Disorders: No CVA: No COPD: Yes (Pt is on MDI) CHF: No Dementia: No Diabetes: No GI Disorders: No Disorders: No HTN: Yes (HCTZ 25 MG PO DAILY) Hypercholesterolemia: No Kidney Stones: No Liver Disease: No Seizures: No Thyroid Disease: No - Surgical History Abdominal Surgery: No Appendectomy: No Cardiac Surgery: No Cholecystectomy: No Lung Surgery: No Neurologic Surgery: No Orthopedic Surgery: Yes (sx to R wrist knee and ankle 01/21) - Reproductive History Testicular Surgery: No - Immunization History Immunization Up to Date: Yes - Suicide/Smoking/Psychosocial Hx Smoking History: Unknown if ever smoked Have you smoked in the past 12 months: No Number of Cigarettes Smoked Daily: 5 'Breaking Loose' booklet given: 03/31/17 Hx Alcohol Use: No Drug/Substance Use Hx: Yes Substance Use Type: Cocaine Hx Substance Use Treatment: Yes ([facility] 12/19/16 - 12/24/16) Abd/GI Specific PMHX - Complaint Specific PMHX Hepatitis: No Pancreatitis: No Review of Systems - Review of Systems Able to Perform ROS?: Yes Is the patient limited Pashto proficient: No Constitutional: No: Symptoms Reported HEENTM: No: Symptoms Reported Respiratory: No: Symptoms reported Cardiac (ROS): No: Symptoms Reported ABD/GI: Yes: See HPI : No: Symptoms Reported Musculoskeletal: No: Symptoms Reported All Other Systems: Reviewed and Negative *Physical Exam - Vital Signs Last Vital Signs Temp Pulse Resp BP Pulse Ox 97.4 F L 96 H 20 99/66 96 04/05/17 16:59 04/05/17 16:59 04/05/17 16:59 04/05/17 16:59 04/05/17 16:59 - Physical Exam General Appearance: Yes: Nourished, Cachetic HEENT: positive: EOMI, RU Respiratory/Chest: positive: Lungs Clear, Normal Breath Sounds. negative: Chest Tender, Respiratory Distress Cardiovascular: positive: Regular Rhythm, S1, S2, Tachycardia Gastrointestinal/Abdominal: positive: Normal Bowel Sounds, Tender, Flat, Soft, Hernia (midline above umbilicus.) Musculoskeletal: positive: Normal Inspection. negative: CVA Tenderness Integumentary: positive: Normal Color, Dry, Warm Neurologic: positive: Fully Oriented, Alert, Normal Mood/Affect, Normal Response Medical Decision Making - Medical Decision Making 04/05/17 19:47 Patient has an abdominal hernia on CT. Renal cyst and large amount of fecal material. Will discharge with laxative 04/05/17 19:48 *DC/Admit/Observation/Transfer Diagnosis at time of Disposition: Abdominal pain - Discharge Dispostion Disposition: HOME Condition at time of disposition: Improved Admit: No - Prescriptions Prescriptions: Lactulose (Oral Use) [Cephulac -] 20 gm PO TID #1 bottle - Referrals Referrals: Faustina Torres MD [Staff Physician] - - Patient Instructions Printed Discharge Instructions: Increased Dietary Fiber May Improve Constipation Conditions With Pelvic Chaim Additional Instructions: Come back to the ER for any new, worsening or concerning symptom. - Post Discharge Activity
--- NOTE | 2017-04-05 17:24 | PDOC ---
Attending Attestation - Resident Resident Name: Daniel Diamond - ED Attending Attestation I have performed the following: I have examined & evaluated the patient, The case was reviewed & discussed with the resident, I agree w/resident's findings & plan, Exceptions are as noted - HPI HPI: 04/07/17 17:26 Mr Dixon is a 61 yo M with a history of HIV (on HARRT), Cocaine abuse, COPD, Bipolar d/o pt has a known ventral hernia (which he states appeared postoperatively after the repair of a right inguinal hernia Pt also has a h/o some sort of infections condition which he says resulted in right wrist, knee and ankle swelling, necessitating surgical drainage Pt is in the process of finishing his detox program and will be going to rehab Pt states that he has had abdominal pain which began this afternoon No associated with diarrhea or vomiting Pt believes this to be due to what he ate today No fevers or chills NO abdominal distention - Physicial Exam PE: 04/07/17 17:31 ON examination: Moist mucous membranes RRR CTA bilaterally Abd soft, non distended Hernia soft, easily reducible No involuntary guarding or rebound - Medical Decision Making 04/07/17 17:32 This is a 61 yo M currently undergoing detox Pt presents with abdominal pain Pt states pain has improved He would like to go back to [facility] Clinical impression: gastritis, initial presentation hernia, initial presentation
[2017-04-05 21:17] VITALS: BP 101/68; PULSE 90; TEMP 97.8
== END 2017-04-05 21:17 | disposition home or self-care (01) ==
LOC: JER 16:34
DX: R10.9 Unspecified abdominal pain (principal); I10 Essential (primary) hypertension; J44.9 Chronic obstructive pulmonary disease, unspecified
CPT/HCPCS: 74176-TC; 99283-25